=== PATIENT | female | born 1985 | race Caucasian/White ===

== ENCOUNTER 2023-08-06 08:58 | Outpatient (OUT) | payer OTHER, SELFPAY ==
--- NOTE | 2023-08-06 09:29 | XR_ITS ---
[address] [address] Patient Name: WANG ACEVEDO MRN: [id number] date: 1985 Sex: F Assigned Patient Location: [facility] Current Patient Location: [facility] Accession/Order Number: [id number] Exam Date: 08/06/2023 09:35 Report Date: 08/06/2023 10:11 At the request of: DELMER YODER Procedure: XR chest 2V EXAM: XR chest 2V HISTORY: Preop exam COMPARISON: None. TECHNIQUE: PA and lateral views of the chest. FINDINGS: The cardiomediastinal silhouette is normal. No focal consolidation is identified. There is no pneumothorax. No pleural effusion is noted. The osseous structures are intact. XR/XR chest 2V IMPRESSION: No acute cardiopulmonary process. Electronically authenticated by: YUKI CONCEPCION Date: 08/06/2023 10:11
--- NOTE | 2023-08-06 09:29 | ECG_ITS ---
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
[2023-08-06 09:53] LABS: Basophils Percent Auto 0.5 % (0.2-2.0); Eosinophils Absolute Auto 0.1 10^3/uL (0.0-0.7); Eosinophils Percent Auto 1.8 % (0.9-7.0); Hematocrit 39.7 % (36.0-48.0); Immature Granulocytes Abs Auto 0.02 10^3/uL (0.00-0.03); Immature Granulocytes Pct Auto 0.3 % (0.0-0.5); Lymphocytes Absolute Auto 2.9 10^3/uL (1.2-3.8); Lymphocytes Percent Auto 36.8 % (20.5-60.0); Mean Corpuscular HGB Conc 32.7 g/dL (29.9-35.2); Mean Corpuscular Hemoglobin 30.2 pg (26.7-34.0); Mean Corpuscular Volume 92.3 fL (81.0-99.0); Mean Platelet Volume 8.9 fL (9.5-13.5); Monocytes Absolute Auto 0.5 10^3/uL (0.3-0.8); Monocytes Percent Auto 6.5 % (1.7-12.0); Neutrophils Absolute Auto 4.3 10^3/uL (1.4-6.5); Neutrophils Percent Auto 54.1 % (43.0-75.0); Platelet Count 347 10^3/uL (150-450); Red Cell Distribution Width 11.9 % (11.0-15.0); White Blood Count 7.9 10^3/uL (4.0-11.0)
[2023-08-06 11:34] LABS: Partial Thromboplastin Time 24.1 sec (22.3-36.2); Prothrombin Time 9.8 sec (9.0-11.6)
[2023-08-06 11:50] LABS: INR <0.93
== END 2023-08-06 08:59 | disposition home or self-care (01) ==
LOC: PST 08:59
PROVIDERS: Visit Provider Otolaryngology
DX: Z01.810 Encounter for preprocedural cardiovascular examination (principal); Z01.812 Encounter for preprocedural laboratory examination; J32.0 Chronic maxillary sinusitis
CPT/HCPCS: 71046; 85025; 85610; 85730; 93005

== ENCOUNTER 2023-08-18 08:17 | Day surgery (SDC) | payer OTHER, SELFPAY ==
[2023-08-06 09:06] VITALS: BP 103/65; PULSE 83; RESP 16; TEMP 36.3; O2SAT 96; BMI 19.9
[2023-08-18] VITALS (12 sets, daily range): BP systolic 91–110; BP diastolic 57–78; PULSE 85–101; RESP 6–24; TEMP 36.2–36.8; O2SAT 96–100; BMI 19.9
--- NOTE | 2023-08-18 | OP_ITS ---
OPERATION DATE: 08/18/2023 PRIMARY CARE PHYSICIAN: Tiffanie Sweeney M.D. SURGEON: Roro Jewell M.D. PREOPERATIVE DIAGNOSIS: Chronic left maxillary sinusitis. POSTOPERATIVE DIAGNOSIS: Chronic left maxillary sinusitis. PROCEDURE: Left maxillary antrostomy. ANESTHESIA: General endotracheal. COMPLICATIONS: None. FINDINGS: Slightly milky fluid filling the left maxillary sinus. INDICATION: This 38-year-old woman presented with chronic left maxillary sinusitis, unresponsive to aggressive medical management. PROCEDURE: Patient identified in the holding area and taken back to the OR where she was placed in the supine position. After induction of general endotracheal anesthesia, the table was turned, the head elevated, and the face draped in a sterile fashion. An Afrin soaked pledget was placed in the left nose, and after waiting adequate time for decongestion, the nose was copiously irrigated. The nose was then approached with the nasal endoscope and lidocaine 1% with 1:100,000 injected into the uncinate process. After waiting adequate time for hemostasis, the nose was re-approached with the nasal endoscope. The middle turbinate was medialized using a Morgan elevator, and a sickle knife was used to incise the uncinate process. The uncinate process was removed with the straight ethmoid forcep, and the natural ostium of the maxillary sinus was identified with the Shefali seeker. The natural ostium was then opened posteriorly with the straight cutting forcep and inferiorly with the side biting forcep. There was a clear to milky fluid filling the sinus. The sinus was then copiously irrigated with normal saline. There was no significant bleeding, and the patient was awakened and taken to the recovery room in good condition. MARIBEL
--- OUTSIDE RECORDS SUMMARY | 2023-08-18 08:20 | XMS_ITS | CCD ---
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 Name Role Phone SANDI RIOS Admitting Unavailable SANDI RIOS Attending Unavailable TIFFANIE SWEENEY Referring Unavailable TIFFANIE SWEENEY Primary Care Unavailable Patel BRYSON, Tiffanie Myers Primary Care Unavailab Juventino BRYSON, Jaron Chavis Attending Unavaila lorenzo VALDES, Messi Morrison Attending U christine Sweeney MD, Tiffanie Myers Consulting Unavailab anel Sweeney MD, Tiffanie Lucia Primary Care Unavailab anel VALDES, Messi Morrison Attending U christine Sweeney MD, Tiffanie Lucia Primary Care Unavailab anel VALDES, Messi Morrison Attending U christine Sweeney MD, Tiffanie Myers Primary Care Unavailab anel Sweeney MD, Tiffanie Lucia Primary Care Unavailab anel VALDES, Messi Morrison Attending U christine Sweeney MD, Tiffanie Myers Primary Care Unavailab Claudia BRYSON, Bita Forrest Attending Ignacia Sweeney MD, Tiffanie Myers Primary Care Unavailab anel Bell MD, Bita Forrest Attending Ignacia Sweeney MD, Tiffanie Myers Referring Unavailab anel Sweeney MD, Tiffanie Myers Primary Care Unavailab Tolbert, Messi Morrison Attending U RORO Abdi Attending Unavailable ARTURO FULTON Referring Unavailable TIFFANIE SWEENEY Primary Care Physician [phone] Roro Yoder Referring Unavailable Roro Yoder Attending Unavailable Roro Yoder Admitting Unavailable JUAN ALEX Attending Unavailable JUAN ALEX Attending Unavailable Allergies Allergy Classification Reported Allergen(s) Allergy Type Date of Onset Reaction(s) Facility (1 source) cefprozil; Translations: [CEFZIL] Drug Allergy 0 [facility] Repository (2 sources) Cephalosporins (Antibiotic); Translations: [CEPHALOSPORINS] Propensity to adverse reactions (disorder) 6 [facility] Repository (1 source) cephalothin; Translations: [cephalothin] Propensity to adverse reactions to drug (disorder) [facility] Repository (1 source) buPROPion; Translations: [BUPROPION] Drug Allergy 6 [facility] Repository (1 source) DULoxetine; Translations: [DULOXETINE] Drug Allergy 6 [facility] Repository (1 source) Gluten; Translations: [GLUTEN] Propensity to adverse reactions to drug (disorder) 6 [facility] Repository (1 source) Nortriptyline; Translations: [NORTRIPTYLINE] Drug Allergy 8 [facility] Repository (1 source) topiramate; Translations: [TOPIRAMATE] Drug Allergy 7 [facility] Repository Problems Active Problems Problem Classification Problem Date Documented Da te Episodic/Chronic Diabetes mellitus with complications (2 sources) Type 2 diabetes mellitus with hyperglycemia; Translations: [Type 2 diabetes mellitus with hyperglycemia] Onset: 01-13-2023 Chronic Thyroid disorders (6 sources) Other specified hypothyroidism; Translations: [Autoimmune thyroiditis] Onset: 01-13-2023 Chronic Past or Other Problems Problem Classification Problem Date Documented Da te Episodic/Chronic Malaise and fatigue (2 sources) Other fatigue; Translations: [Other fatigue] Onset: 04-23-2023 Episodic Results Test Name Value Interpretation Reference Range Facility Orders Onlyon 08-05-2023 Orders Only [id number] Margret Byrne 1985 F Date Provider Department Center 08/05/2023 [id number]-ERLINDA NOLAND [facility] No family history on file Normal [facility] Orders Onlyon 08-03-2023 Orders Only [id number] Margret Byrne 1985 F Date Provider Department Center 08/03/2023 JUAN FOX [facility] END[facility] No family history on file Normal [facility] Orders Onlyon 07-28-2023 Orders Only [id number] Margret Byrne 1985 F Date Provider Department Center 07/28/2023 Vito8-ERLINDA NOLAND [facility] ENDOCR [facility] No family history on file Normal [facility] CT Maxillofacial w/o Contras ton 07-23-2023 CT Maxillofacial w/o Contrast Exam Date/Time: 07/23/2023 09:59 EST Reason for Exam: J32.4 Report IMPRESSION: THERE IS CHRONIC LEFT MAXILLARY SINUSITIS. EXAM: CT Maxillofacial w/o Contrast DATE: 07/23/2023 9:51 AM CLINICAL HISTORY: J32.4. COMPARISON: None available. TECHNIQUE: Multiple images axial images were obtained without contrast administration. 3-D sagittal and coronal reconstructions were performed. All CT scans at this facility use dose modulation, iterative reconstruction, and/or weight based dosing when appropriate to reduce radiation dose to as low as reasonably achievable. SINUS CT FINDINGS: The visualized intracranial portions are within normal limits. The orbits demonstrate no intra or extraconal lesions, the globes are intact. There is no fracture or subluxation. There are no lytic or sclerotic bone lesions. The frontal sinuses are well aerated. The ethmoid sinuses are within normal limits. The sphenoid sinuses are unremarkable. The maxillary sinuses are well aerated. There is mucoperiosteal thickening of the floor of the left maxillary sinus. The ostiomeatal complexes are patent. The nasal cavities are within normal limits. There is mild deviation of the nasal septum towards the left. The visualized portions of the mastoid air cells and middle ear spaces are within normal limits. The soft tissues are within normal limits. Report Ordering Provider: Roro Yoder FINAL REPORT Dictated: 07/23/2023 2:39 pm Je Fisher MD, V. Signed (Electronic Signature): 07/23/2023 2:39 pm Signed by: Je Fisher MD, V. Transcribed by: CARMELO Technologist: VERONICA [facility] Consent for Treatmenton 06-26 Consent for Treatment [id number] [facility] Physician Orderon 07-07-2023 Physician Order [id number]#[id number] [facility] Physician Orderon 06-22-2023 Physician Order [id number]#[id number] [facility] 36on 04-23-2023 36 Nca Certified Concierge [facility] to track down the labs, left voicemail with patient's name and date of service also with office fax and phone number. [facility] 37on 04-23-2023 37 Please take your thy roid hormone medication (levothyroxine) first thing in the morning on empty stomach with plain water, from other medication by 1 to 2 hours (especially calcium, iron and multivitamin pills), and wait 30 min before eating. Refer to sleep hygiene brochure. Stay well hydrated and change positions slowly to avoid blood pressure drop/racing heartbeats [facility] Follow-Upon 04-23-2023 Follow-Up [id number] Margret Byrne 1985 F Date Provider Department [facility] No family history on file Level of Service:[id number] [place] OFFICE/OUTPATIENT ESTABLISHED LOW MDM 20-29 MIN () Reason for Visit and Comments: FOLLOW UP [Other] [facility] Telephoneon 04-23-2023 Telephone [id number] Margret Byrne 1985 F Date Provider Department Center [facility] No family history on file [facility] Follow-Upon 01-13-2023 Follow-Up [id number] Margret Byrne 1985 F Date Provider Department Center 01/13/2023 316JUAN CLEMONS [facility] No family history on file Level of Service:[id number] [place] OFFICE/OUTPATIENT ESTABLISHED HIGH MDM 40-54 MIN () Reason for Visit and Comments: Follow-up [[id number]] Normal [facility] Endocrinology Office/Clinic Noteon 12-02-2022 Endocrinology Office/Clinic Note [facility] Chief Complaint New patient endocrinology consult for prediabetes and hypothyroidism History of Present Illness Patient is a 37 Years year old Female with a past medical history of _ and type _ diabetes complicated by _ who presents today for DM management and hypothyroidism. Current DM regimen: Diabetes Type: _ Year of Diagnosis: _ Circumstances of diagnosis: _ DM treatment at diagnosis: _ Current DM treatment: _ Med intolerances/contraindica tions: _ Total daily insulin dose: _ DM Complications: _ History of DKA: _ _This patient is currently on continuous subcutaneous insulin infusion through a _ insulin pump purchased in _. The patient uses _ infusion set. The patient currently has the following insulin pump self care habits in he/she does: _ INSULIN PUMP SELF-CARE HABITS. However, patient does not: _ INSULIN PUMP SELF-CARE HABITS CURRENT PUMP SETTINGS: Basal: _ I/C: _ Insulin On Board: _ ISF: _ TDD: _ TDD Basal: _ IOB: _ Off pump plan: _ BG Monitoring: AM BG: Before Lunch: Before dinner: BG < 70: Hypoglycemia: Events since last visit: _ Timing and Triggers: _ Knows to correct lows: _ Glucagon kit: _ Lifestyle history: Dietary history: Breakfast: _ Lunch: _ Dinner: _ Snacks: _ Drinks: _ Physical activity: _ Barriers: _ Diabetes Health Maintenance - Lipids: last LDL _, on statin - BP at goal _ - Microalbumin last _, on ADRIANNA/ARB - Last eye exam: _ Also include foot exam Year of diagnosis: _ Symptoms at presentation: _ Previous treatment: _ Current treatment: _ Last dose change: _ Technique: _ Biotin use: _ Iron, calcium, multivitamin: _ Current symptoms include _ . Denies tremors, palpitations, anxiety, insomnia, unintentional weight change, temperature imbalance, constipation, swelling, or fatigue. Pt does not have celiac disease, type 1 diabetes, adrenal insufficiency, b12 deficiency, or hypoparathyroidism. There is no _ family history of thyroid disease. _ if female plans for Physical Exam Exam: General: Alert and oriented, well nourished, no acute distress Eye: EOMI, normal conjunctiva without injection. No exophthalmos noted. HENT: Normocephalic, atraumatic. Neck: Supple, non-tender, no lymphadenopathy. Thyroid gland is _ in size. No thyroid bruit is identified. Lungs: Clear to auscultation, no wheezes. Non-labored respiration. Heart: Normal rate, regular rhythm, no murmur. Abdomen: Soft, non-tender, non-distended, normal bowel sounds. Musculoskeletal: Normal range of motion. _ pretibial edema. _ Skin: Skin is warm, dry and pink, no rashes noted on uncovered areas of skin examined with the patient still clothed. Neurologic: Awake, alert, and oriented X3. Biceps reflexes _ + bilaterally. _ tremor to outstretched hands. Psychiatric: Cooperative, appropriate mood and affect. Data Reviewed Weight Trend Weight Measured: 75.5 kg (05/27/22 08:11:00) Weight Measured: 73.2 kg (04/21/22 16:36:00) Labs: Hgb A1C Last 3 Results No qualifying data available. POC Hgb A1C Last 3 Results No qualifying data available. CMP Last Result No qualifying data available. Lipid Panel Last Result No qualifying data available. Urine Protein/Creatinine Ratio Last Result No qualifying data available. Vitamin B12 Last 3 Results No qualifying data available. Any historic paired glucose/c-pep _ Glucose Fasting Last 3 Results No qualifying data available. Glucose Random Last 3 Results No qualifying data available. C-Peptide [place] Last 3 Results No qualifying data available. Lab Insulin Level Last 3 Results No qualifying data available. Insulin Antibody-[place] Last 3 Results No qualifying data available. TSH Last Result No qualifying data available. Any historic t1d abs ? GAD65, ZNt8, IA-2, antipancreatic islet celiac ab _ Labs: TSH Last 3 Results No qualifying data available. Free T4 Last Result No qualifying data available. Total T3 Last Result No qualifying data available. Thyroperoxidase Antibody (TPO Ab) - Last Result No qualifying data available. Thyroglobulin Antibody (TG Ab) ? Last Result No qualifying data available. Assessment/Plan Patient is a 37 Years old Female who presents for DM management and hypothyroidism. Glycemic control Diabetes counseling, health care maintenance, and therapies were discussed. We have discussed the importance of the need for good blood pressure and glycemic control to further reduce the risks of microvascular and macrovascular complications. We have discussed how to recognize and treat hypoglycemia. I have stressed the importance of checking blood sugars prior to driving or operating machinery. Medication recommendations - _ Glucose monitoring: Glucose targets for non- adults: Fasting 80-130 mg/dL. Peak postprandial < 180 mg/dL. Prevention and treatment of hypoglycemia: I have discussed with (more content not included)... Normal [facility] Gastroenterology Office/Clin ic Noteon 05-27-2022 Gastroenterology Office/Clinic Note Chief Complaint Patient notes still having GI issues. F/u for GES, EGD/COLON. History of Present Illness Patient is a 36-year-old female who presents to GI clinic today for follow-up gastric emptying study and colonoscopy EGD. Gastric emptying study revealed normal gastric emptying. Colonoscopy revealed normal TI, normal colon. EGD revealed normal esophagus, gastric erythema, duodenal erythema. Pathology mild chronic gastritis, negative celiac, negative acute colitis. Patient does note having diarrhea. States this multiple times daily. Stool caliber 5-7 on the [place]. Notes feeling a lot of abdominal gurgling. Patient does note nausea and heartburn. Occasionally has to take a Nexium in the evening as well. Did discuss with patient doing 40 mg esomeprazole in a.m. and Gaviscon at at bedtime. We will also trial colestipol and Bentyl for diarrhea GES 05/02/2022 (05/02/2022 12:01 EST NM Gastric Emptying 4 Hour) IMPRESSION: 1. No abnormal gastric retention. 2. No GE reflux. Normal Limits for Gastric Retention [1] Colonoscopy 04/29/2022 Impression and Plan Notes: Impression: ?Normal examined terminal ileum ? Normal colon. Biopsied. Recommendations: ?Discharge patient to home ? Return to referring provider ? Await pathology results ? Repeat colonoscopy in 10 years for colorectal cancer screening purposes ?The patient has a contact number available for emergencies. The signs and symptoms of potential delayed complications were discussed with the patient. Return to normal activities tomorrow. Written discharge instructions were provided to the patient. [2] EGD 04/29/2022 Impression and Plan Notes: Impression: ?Normal esophagus ? Gastric erythema. Biopsied. ? Duodenal erythema. Biopsied. Recommendations: ?Await pathology results ? Outpatient GI follow-up ? Proceed with same-day colonoscopy ?The patient has a contact number available for emergencies. The signs and symptoms of potential delayed complications were discussed with the patient. Return to normal activities tomorrow. Written discharge instructions were provided to the patient.. [3] Pathology Diagnosis (Verified) Part A: Stomach, biopsies: Moderate chronic gastritis. Part B: Duodenum, biopsies: Benign small bowel. Negative for celiac disease. Part C: Colon, biopsies: Benign colonic mucosa. Negative for acute colitis. [4] OV 04/21/2022 Patient is a 36-year-old female who presents to GI clinic today as a referral for GERD and celiac disease. Patient notes having multiple colonoscopies EGDs. Believes last colonoscopy 2017. Notes had some GI testing at [facility] in 2019. States has been gluten-free for 9 years. Patient states having a lot of abdominal bloating. Did food sensitivity testing. Notes having chronic nausea. Endorses early satiety. Notes acid reflux and heartburn often. Takes Nexium 20 mg daily. Failed treatment with omeprazole. Notes having epigastric pain. Patient notes having bowel movements generally in AM. Does note going 3 to 4 days at times without bowel movements. Does note having abdominal spasms and cramping when having diarrhea. [5] Review of Systems Constitutional: No fevers, chills, sweats Eye: No recent visual problems ENMT: No ear pain, nasal congestion, sore throat Respiratory: No shortness of breath, cough Cardiovascular: No Chest pain, palpitations, syncope Gastrointestinal: As stated in HPI Genitourinary: No hematuria, no urgency/frequency Lymph: Negative for bruising tendency, swollen lymph glands Endocrine: Negative for excessive thirst, excessive hunger Musculoskeletal: No back pain, neck pain, joint pain, muscle pain, decreased range of motion Integumentary: No rash, pruritus, abrasions Neurologic: Alert & oriented X [address], place, time and situation Psychiatric: No anxiety, depression Physical Exam Vitals & Measurements HT: 170 cm WT: 75.5 kg BMI: 26.12 General: Alert and oriented, well nourished, no acute distress. Lungs: Clear to auscultation and percussion, non-labored respiration. Heart: Normal rate, regular rhythm, no murmur, gallop or edema. Abdomen: Soft, non-tender , non-distended, normal bowel sounds, no masses. Skin: Skin is warm, dry and pink, no rashes or lesions. Neurologic: Awake, alert, and oriented X3 Psychiatric: Cooperative, appropriate mood and affect. Additional Vitals No qualifying data available. Assessment/Plan 1. Gluten intolerance Continue to follow gluten-free diet 2. Nausea Zofran as needed Small frequent meals 3. Irritable bowel syndrome Twice dailyIncrease water and fiber in diet Fiber supplementation daily Colestipol Bentyl as needed Orders: colestipol, 2 tabs, Oral, BID, with a full glass of water, # 120 tabs, 2 Refill(s), Pharmacy: [id number] dicyclomine, 1 tabs, Oral, QID, PRN, # 60 tabs, 1 Refill(s), Pharmacy: [id number] esomeprazole, 1 caps, Oral, BID, # 60 caps, 2 Refill(s), Pharmacy: [id number] ondanset (more content not included)... Normal [facility] Gastroenterology Office/Clin ic Noteon 04-21-2022 Gastroenterology Office/Clinic Note Chief Complaint Patient having alot of GERD. Hx of celiac disesase. History of Present Illness Patient is a 36-year-old female who presents to GI clinic today as a referral for GERD and celiac disease. Patient notes having multiple colonoscopies EGDs. Believes last colonoscopy 2017. Notes had some GI testing at [facility] in 2019. States has been gluten-free for 9 years. Patient states having a lot of abdominal bloating. Did food sensitivity testing. Notes having chronic nausea. Endorses early satiety. Notes acid reflux and heartburn often. Takes Nexium 20 mg daily. Failed treatment with omeprazole. Notes having epigastric pain. Patient notes having bowel movements generally in AM. Does note going 3 to 4 days at times without bowel movements. Does note having abdominal spasms and cramping when having diarrhea. Review of Systems Constitutional: No fevers, chills, sweats Eye: No recent visual problems ENMT: No ear pain, nasal congestion, sore throat Respiratory: No shortness of breath, cough Cardiovascular: No Chest pain, palpitations, syncope Gastrointestinal: As stated in HPI Genitourinary: No hematuria, no urgency/frequency Lymph: Negative for bruising tendency, swollen lymph glands Endocrine: Negative for excessive thirst, excessive hunger Musculoskeletal: No back pain, neck pain, joint pain, muscle pain, decreased range of motion Integumentary: No rash, pruritus, abrasions Neurologic: Alert & oriented X [address], place, time and situation Psychiatric: No anxiety, depression Physical Exam Vitals & Measurements HR: 91 (Peripheral) SpO2: 99 HT: 170 cm WT: 73.2 kg BMI: 25.33 General: Alert and oriented, well nourished, no acute distress. Lungs: Clear to auscultation and percussion, non-labored respiration. Heart: Normal rate, regular rhythm, no murmur, gallop or edema. Abdomen: Soft, non-tender , non-distended, normal bowel sounds, no masses. Skin: Skin is warm, dry and pink, no rashes or lesions. Neurologic: Awake, alert, and oriented X3 Psychiatric: Cooperative, appropriate mood and affect. Additional Vitals No qualifying data available. Assessment/Plan 1. Gluten intolerance Continue gluten-free diet 2. Tubular adenoma of small intestine EGD colonoscopy 3. Lower abdominal pain EGD colonoscopy 4. Irritable bowel syndrome with alternating bowel habits Colonoscopy Increase water and fiber in diet Fiber supplementation daily 5. Nausea EGD Nexium twice daily Zofran as needed Gastric emptying study Medical Decision Making Chronic conditions NOT treated during this visit that affected my overall medical decision making: [] Treatment plans discussed but not opted for at this time: [] Prescribed medication that requires intensive monitoring for toxicity: [] I have reviewed the patient?s medication list for medication interactions/contraindica tions and/or for upcoming procedures: [yes or no] Time Spent with the Patient I have personally spent [33 minutes on this date, directly related to today's patient visit, including pre and post visit work, for this date of service. Time listed does not include time spent on separately billable services. Problem List/Past Medical History Ongoing Celiac disease Fibromyalgia Nimisha thyroiditis Insulin resistance PCOS - Polycystic ovary syndrome Historical No qualifying data Procedure/Surgical History Colonoscopy EGD Extraction of wisdom tooth REMOVAL OF ADENOIDS Tonsillectomy APPENDECTOMY (07/30/2015) Cholecystostomy (02/22/2018) Colonoscopy Esophagogastrodenoscopy with Biopsy/Snare (04/29/2022) Medications levothyroxine 150 mcg (0.15 mg) oral tablet, 150 mcg= 1 tabs, Oral, Daily magnesium amino acids chelate, Oral, Daily metFORMIN 1000 mg oral tablet, 1000 mg= 1 tabs, Oral, BID NexIUM 20 mg oral delayed release capsule, 20 mg= 1 caps, Oral, Daily Multivitamins with Vitamin B Complex, Vitamin C, Minerals and L-Methylfolate oral capsule, 1 caps, Oral, Daily Probiotic Formula oral capsule, 1 caps, Oral, Daily venlafaxine 75 mg oral capsule, extended release, 75 mg= 1 caps, Oral, Daily Vitamin D3, 10 mcg, Oral, Daily Allergies cephalothin (Hives) Social History Alcohol Current, Beer, 1-2 times per month Substance Abuse Denies All Tobacco Never (less than 100 in lifetime) Use:. Family History Cancer of colon: Cousin. Immunizations Vaccine Date Status Hib(HbOC) 04/15/2022 Given Comments : Original Free text Vaccine : Haemophilus influenzae type b vaccine, HbOC SARS-CoV-2 (COVID-19) mRNA BNT-162b2 vax 05/24/2019 Given Comments : Original Free text Vaccine : SARS-CoV-2 (COVID-19) mRNA BNT-162b2 vaccine / Pfizer Electronically signed by Messi Graham 05/04/22 18:51 EST Normal [facility] 17 HYDROXYPROGESTERONE [id number] on 05-23-2021 17 HYDROXYPROGESTERONE 167.62 ng/dL Normal <=206.00 [facility] Comment on above: Result Comment: INTE RPRETIVE INFORMATION for 17-Hydroxyprogesterone in females: Follicular 15 to 70 ng/dL Luteal 35 to 290 ng/dL REFERENCE INTERVAL: 17-Hydroxyprogesterone Qnt, HPLC-MS/MS Access complete set of age- and/or gender-specific reference intervals for this test in the [facility] Test Directory ([employer]). This test was developed and its performance characteristics determined by [facility] It has not been cleared or approved by the [place] Food and Drug Administration. This test was performed in a CLIA certified laboratory and is intended for clinical purposes. Performed By: [facility] [address] [place] [address] Clock Maker: Rosa Maria Chen MD ANDROSTENEDIONE [id number] ANDROSTENEDIONE 1.721 ng/mL Normal 0.260-2.140 [facility] Comment on above: Result Comment: INTE RPRETIVE INFORMATION: Androstenedione, Females 18 years and older Post-menopausal: 0.13-0.82 ng/mL REFERENCE INTERVAL: Androstenedione by TMS Access complete set of age- and/or gender-specific reference intervals for this test in the [facility] Test Directory ([employer]). This test was developed and its performance characteristics determined by [facility] It has not been cleared or approved by the [place] Food and Drug Administration. This test was performed in a CLIA certified laboratory and is intended for clinical purposes. Performed By: [facility] [address] [place] [address] Clock Maker: Rosa Maria Chen MD PROLACTINon 05-23-2021 PROLACTIN 18.30 ng/mL Normal 1.39-24.20 The [facility] Comment on above: Performed By: #### 4 1467 #### [facility] [address] [place] [address], [facility] SJOGRENS ANTIBODIESon 2020 SS-A Negative Normal NEG,NEGATIVE, Neg [facility] Comment on above: Performed By: #### 9 9850 #### [facility] [address] [place] [address], [facility] SS-B Negative Normal NEG,NEGATIVE, Neg [facility] Comment on above: Performed By: #### 9 9850 #### [facility] [address] [place] [address], [facility] TESTOSTERONE, FREE+SHBG+TOTA L ILon 05-23-2021 [place] Normal [facility] Comment on above: Result Comment: Test Performed by [facility] [address] [place] [address] - Released 05/23/2021 15:52 SEX HORM BIND GLOB 74 nmol/L Normal 30-135 [facility] Testosterone [Mass/Vol] 26 ng/dL Normal 20-70 [facility] TESTOSTERONE, FREE 2.7 pg/mL Normal 1.3-9.2 [facility] Comment on above: Result Comment: The concentration of free testosterone is derived from a mathematical expression based on the constant for the binding of testosterone to albumin and/or sex hormone binding globulin. Progress Noteson 05-06-2021 Progress Notes Encounter Department : [facility] You are not granted access to view this sensitive note. Normal [facility] Progress Noteson 04-03-2021 Progress Notes Encounter Department : [facility] You are not granted access to view this sensitive note. Normal [facility] HEPATITIS B CORE ANTIBODYon 03-15-2021 HEP B CORE AB Non-Reactive Normal NONREACTIVE [facility] Comment on above: Performed By: #### 4 1467 #### [facility] [address] HEPATITIS B SURFACE ANTIBODY QUANTon 03-15-2021 HEP B SURF AB 3.27 mIU/ml Normal [facility] Comment on above: Result Comment: INTE RPRETATION: NONREACTIVE<8.00 mIU/mL INDETERMINATE8.00 - 12.00 mIU/mL REACTIVE>12 mIU/mL Performed By: #### 4 1467 #### [facility] [address] [facility]. [address] HEPATITIS B SURFACE ANTIGEN QUALon 03-15-2021 HEP B SURF AG QUAL Non-Reactive Normal NONREACTIVE [facility] Comment on above: Performed By: #### 4 1467 #### [facility] [address] [facility] [place] [address], [facility] HEPATITIS C ANTIBODYon 03-15 ANTI-HCV Non-Reactive Normal NONREACTIVE [facility] Comment on above: Performed By: #### 4 1467 #### [facility] [address] [facility] [place] [address], [place] Progress Noteson 03-06-2021 Progress Notes Encounter Department : [facility] You are not granted access to view this sensitive note. Normal [facility] Progress Noteson 01-23-2021 Progress Notes Encounter Department : [facility] You are not granted access to view this sensitive note. Normal [facility] Progress Noteson 10-31-2020 Progress Notes Encounter Department : [facility] You are not granted access to view this sensitive note. Normal [facility] TSH3on 08-23-2020 TSH 3RD GENERATION 0.39 uIU/mL Normal 0.34-5.60 [facility] Comment on above: Performed By: #### 4 1467 #### [facility] [address] [place] [address], [facility] BASIC METABOLIC PANELon 05-26 Calcium [Mass/Vol] 9.6 mg/dL Normal 8.6-10.3 [facility] Comment on above: Performed By: #### 3 0728, 75164, 75596, 39644, 63685, 73700, 38294 #### [facility] [address] [place] [address], [facility] Chloride [Moles/Vol] 100 mmol/L Normal 98-107 [facility] Comment on above: Performed By: #### 3 0728, 10693, 60407, 12011, 53402, 05343, 98499 #### [facility] [address] [place] [address], [place] CO2 [Moles/Vol] 26 mmol/L Normal 21-31 [facility] Comment on above: Performed By: #### 3 0728, 67162, 85881, 94646, 11805, 89231, 25104 #### [facility] [address] [place] [address], [place] Creatinine [Mass/Vol] 0.68 mg/dL Normal 0.60-1.20 [facility] Comment on above: Performed By: #### 3 0728, 75051, 53558, 94274, 43826, 19973, 20292 #### [facility] [address] [place] [address], [place] GFR/1.73 sq M.predicted among blacks MDRD (S/P/Bld) [Vol rate/Area] mL/min/{1.73_m2} Normal >60 [facility] Comment on above: Performed By: #### 3 0728, 01764, 48559, 23847, 06611, 13142, 11840 #### [facility] [address] [place] [address], [place] GFR/1.73 sq M.predicted among non-blacks MDRD (S/P/Bld) [Vol rate/Area] mL/min/{1.73_m2} Normal >60 [facility] Comment on above: Performed By: #### 3 0728, 51048, 11752, 12607, 37859, 85803, 89083 #### [facility] [address] [place] [address], [place] Glucose [Mass/Vol] 90 mg/dL Normal 70-100 [facility] Comment on above: Performed By: #### 3 0728, 01158, 19526, 77597, 97412, 32842, 54066 #### [facility] [address] [place] [address], [place] Potassium [Moles/Vol] 4.5 mmol/L Normal 3.5-5.1 [facility] Comment on above: Performed By: #### 3 0728, 36715, 16975, 70105, 62793, 40087, 17649 #### [facility] [address] [place] [address], [place] Sodium [Moles/Vol] 134 mmol/L Low 136-145 [facility] Comment on above: Performed By: #### 3 0728, 01726, 29482, 80587, 42953, 76584, 28605 #### [facility] [address] Urea nitrogen [Mass/Vol] 9 mg/dL Normal 7-25 [facility] Comment on above: Performed By: #### 3 0728, 90769, 58937, 86669, 34071, 45485, 74552 #### [facility] [address] CBC W/DIFFon 06-20-2020 ABS IMM GRANS 0.0 10*3/uL Normal 0.0-0.2 [facility] Comment on above: Performed By: #### 0 0121, 00234, 20116 #### [facility] [address] ABS NEUTROPHILS 4.1 10*3/uL Normal 1.6-7.6 [facility] Comment on above: Performed By: #### 0 0121, 59912, 67515 #### [facility] [address] Basophils (Bld) [#/Vol] 0.0 10*3/uL Normal 0.0-0.2 [facility] Comment on above: Performed By: #### 0 0121, 98715, 52036 #### [facility] [address] Basophils/100 WBC (Bld) 0.4 % Normal 0.0-1.0 [facility] Comment on above: Performed By: #### 0 0121, 37953, 05646 #### [facility] [address] Eosinophils (Bld) [#/Vol] 0.0 10*3/uL Normal 0.0-0.5 [facility] Comment on above: Performed By: #### 0 0121, 90706, 72796 #### [facility] [address] [place] [address], [facility] Eosinophils/100 WBC (Bld) 0.0 % Normal 0.0-6.0 [facility] Comment on above: Performed By: #### 0 0121, 75599, 00718 #### [facility] [address] [place] [address], [facility] Erythrocyte distribution width (RBC) [Ratio] 11.8 % Normal 11.5-15.0 [facility] Comment on above: Performed By: #### 0 0121, 68651, 21253 #### [facility] [address] [facility] [place] [address], [facility] Hematocrit (Bld) [Volume fraction] 40.8 % Normal 36.0-45.0 [facility] Comment on above: Performed By: #### 0 0121, 22422, 38252 #### [facility] [address] [facility] [place] [address], [facility] Hemoglobin (Bld) [Mass/Vol] 13.4 g/dL Normal 12.0-15.0 [facility] Comment on above: Performed By: #### 0 0121, 92320, 21841 #### [facility] [address] [place] [address], [facility] IMMATURE GRANS 0.4 % Normal 0.0-1.0 [facility] Comment on above: Performed By: #### 0 0121, 95593, 17641 #### [facility] [address] [facility] [address], [facility] Lymphocytes (Bld) [#/Vol] 2.7 10*3/uL Normal 1.2-4.0 [facility] Comment on above: Performed By: #### 0 0121, 17794, 47843 #### [facility] [address] [place] [id number], [facility] Lymphocytes/100 WBC (Bld) 36.9 % Normal 20.0-45.0 [facility] Comment on above: Performed By: #### 0 0121, 78433, 83134 #### [facility] [address] MCH (RBC) [Entitic mass] 30.0 pg Normal 27.0-33.0 [facility] Comment on above: Performed By: #### 0 0121, 93765, 20050 #### [facility] [address] MCHC (RBC) [Mass/Vol] 32.8 g/dL Normal 32.0-35.0 [facility] Comment on above: Performed By: #### 0 0121, 06651, 99841 #### [facility] [address] MCV (RBC) [Entitic vol] 91.3 fL Normal 82.0-98.0 [facility] Comment on above: Performed By: #### 0 0121, 51443, 36314 #### [facility] [address] Monocytes (Bld) [#/Vol] 0.5 10*3/uL Normal 0.1-1.0 [facility] Comment on above: Performed By: #### 0 0121, 50897, 70071 #### [facility] [address] MONOS 7.1 % Normal 5.0-12.0 [facility] Comment on above: Performed By: #### 0 0121, 45328, 99025 #### [facility] [address] Neutrophils/100 WBC (Bld) 55.2 % Normal 40.0-72.0 [facility] Comment on above: Performed By: #### 0 0121, 84894, 35836 #### [facility] [address] [facility] [address], [facility] Nucleated RBC/100 WBC (Bld) [Ratio] 0 % Normal 0-0 [facility] Comment on above: Performed By: #### 0 0121, 42418, 13341 #### [facility] [address] [facility] [place] [address], [facility] PLAT CNT 305 10*3/uL Normal 150-400 [facility] Comment on above: Performed By: #### 0 0121, 93839, 26848 #### [facility] [address] [facility] [place] [address], [facility] RBC (Bld) [#/Vol] 4.47 10*6/uL Normal 3.80-5.00 [facility] Comment on above: Performed By: #### 0 0121, 70071, 70837 #### [facility] [address] [facility] [place] [address], [facility] WBC (Bld) [#/Vol] 7.37 10*3/uL Normal 4.00-10.60 [facility] Comment on above: Performed By: #### 0 0121, 99189, 76070 #### [facility] [address] [place] [address], [facility] FOLATE SERUMon 06-20-2020 SERUM FOLATE 9.49 ng/mL Normal 6.60-1000.00 [facility] Comment on above: Result Comment: Norm al range reflects World Health Organization International Standard Performed By: #### 4 1467 #### [facility] [address] [facility] [place] [address], [facility] FREE T4on 06-20-2020 Free T4 [Mass/Vol] 1.40 ng/dL Normal 0.71-1.85 [facility] Comment on above: Performed By: #### 4 1467 #### [facility] [address] [facility] [place] [address], [facility] HEMOGLOBIN A1Con 01-27-2021 Glucose [Moles/Vol] 108 mmol/L Normal [facility] Comment on above: Performed By: #### 4 1467 #### [facility] [address] [place] [address], [facility] HbA1c (Bld) [Mass fraction] 5.4 % Normal 4.0-6.0 [facility] Comment on above: Performed By: #### 4 1467 #### [facility] [address] [place] [address], [facility] LIPID PROFILEon 06-20-2020 Cholesterol [Mass/Vol] 193 mg/dL Normal 120-200 [facility] Comment on above: Result Comment: CHOL ESTEROL REFERENCE RANGE: 20 YEARS AND OLDER CARDIOVASCULAR RISK Less than 200 mg/dl Low Risk 200 to 239 mg/dl Borderline Risk 240 mg/dl and greater High Risk Performed By: #### 3 0728, 39271, 42362, 15140, 41604, 75358, 57954 #### [facility] [address] [place] [address], [facility] Cholesterol in HDL [Mass/Vol] 56 mg/dL Normal 23-92 [facility] Comment on above: Result Comment: Slig ht variation in normal range could be due to gender and/or age. HDL CHOLESTEROL REFERENCE RANGE: 20 years and older Cardiovascular Risk > or =60 mg/dL Desirable 40 TO 59 mg/dL Low Risk <40 mg/dL High Risk Performed By: #### 3 0728, 57967, 78732, 07520, 72405, 48647, 12965 #### [facility] [address] [place] [address], [facility] Cholesterol in LDL [Mass/Vol] 108 mg/dL Normal 0-130 [facility] Comment on above: Result Comment: LDL IS A CALCULATION LDL IS ONLY VALID IF THE TRIG IS LESS THAN 400. Performed By: #### 3 0728, 03629, 31793, 13337, 51056, 94899, 94017 #### [facility] [address] Cholesterol.total/Cho lesterol in HDL [Mass ratio] 3.4 {ratio} Normal 0.0-4.5 [facility] Comment on above: Performed By: #### 3 0728, 61282, 32655, 25263, 30422, 76398, 61307 #### [facility] [address] NON-HDL CHOLESTEROL 137 mg/dL Normal [facility] Comment on above: Performed By: #### 3 0728, 85607, 02553, 35743, 08262, 22781, 28785 #### [facility] [address] [facility] [address] Triglyceride [Mass/Vol] 145 mg/dL Normal 40-149 [facility] Comment on above: Result Comment: TRIG LYCERIDE REFERENCE RANGE: 20 YEARS AND OLDER CARDIOVASCULAR RISK LESS THAN 150 mg/dl LOW RISK 150 TO 199 mg/dl BORDERLINE RISK 200 mg/dl AND GREATER HIGH RISK Performed By: #### 3 0728, 88466, 76486, 45354, 23298, 82997, 86416 #### [facility] [address] [facility] [address] VLDL CHOL 29 mg/dL Normal 0-40 [facility] Comment on above: Performed By: #### 3 0728, 99021, 83464, 22912, 22662, 95417, 57228 #### [facility] [address] TSH3 WITH REFLEX FT4on 06-20 TSH 3RD GENERATION 0.09 uIU/mL Low 0.34-5.60 [facility] Comment on above: Performed By: #### 3 0728, 06836, 52944, 18783, 14509, 11096, 86383 #### [facility] [address] [place] [address], [facility] US LIVERon 06-20-2020 LIVER [facility] Department of Radiology [address] [place] [address] Patient Name: MARY GRACE HEMPHILL : 1985 Sex: F Age: Race: White Pt. Location: 260 Patient Status: O Ordered Date: 06/06/2020 3:15:00 PM Completed Date: 06/20/2020 08:57 AM Requesting Provider: SANDI RIOS Attending Provider: SANDI RIOS Report Copy To: TIFFANIE SWEENEY Signs & Symptoms: R10.11 Right upper quadrant pain I10 History: Zonia NPC Req. 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 FINDINGS: Midline structures: Normal Liver Size: Normal Echogenicity: Normal Echotexture:Normal Contour: Normal Portal venous flow:Hepatopedal Mass: None Bile ducts: Unremarkable. Common bile duct measures 6 mm Gallbladder: Surgically absent IMPRESSION: No evidence duct dilatation Electronically signed: Cheyenne Loo. Transcribed by: [email or web address], User Resident: Electronically Signed by: CHEYENNE LOO @ 06/20/2020 03:04 PM Normal [facility] Comment on above: Order Comment: Liver Battery conflicts with Comprehensive Metabolic Panel. Liver Battery canceled and Direct Bilirubin added. VITAMIN B12on 06-20-2020 Cobalamin (Vitamin B12) [Mass/Vol] 427 pg/mL Normal 180-914 [facility] Comment on above: Result Comment: REFE RENCE RANGES: 180-914 pg/mL Normal 145-179 pg/mL Indeterminate <145 pg/mL Deficient Performed By: #### 3 0728, 20874, 18905, 42865, 11219, 89915, 58374 #### [facility] [address] VITAMIN D 25-HYDROXYon 06-20 VITAMIN D 25-OH 30.7 ng/mL Normal 30.0-80.0 [facility] Comment on above: Result Comment: >80. 0 Toxicity possible Performed By: #### 3 0728, 68250, 81240, 96186, 95884, 77142, 20931 #### [facility] [address] DEXA AXIALon 06-18-2020 DEXA AXIAL [facility] Department of Radiology [address] [place] [id number] Patient Name: MARY GRACE HEMPHILL : 1985 Sex: F Age: Race: White Pt. Location: [facility] Patient Status: O Ordered Date: 06/15/2020 10:05:00 AM Completed Date: 06/18/2020 02:35 PM Requesting Provider: TIFFANIE SWEENEY Attending Provider: TIFFANIE SWEENEY Report Copy To: Signs & Symptoms: Celiac Disease K90.0 History: script scanned in [facility] Comments: Exam: DEXA AXIAL DEXA AXIAL 06/18/2020 2:35 PM CLINICAL INDICATIONS: Screening for osteoporosis. Z13.820 history of significant steroid use. COMPARISON: None Findings: In the lumbar spine measuring from L1 to L2 density is 1.253 g/square cm, equivalent to +0.7 standard deviations from mean normal for a young adult, and +0.3 standard deviations from mean normal for age, sex, and race matched controls. In the right femoral neck density is measured at 1.010 g /square cm, equivalent to -0.2 standard deviations from mean normal for a young adult, and -0.2 standard deviations from mean normal for age, sex, and race matched controls. IMPRESSION: Bone density measurements in the normal range in the lumbar spine and hips. [employer] (WHO) GUIDELINES: T-score of -1 or greater = Normal T-score less than -1.0 but greater than -2.5 = Osteopenia T-score of -2.5 or less = Osteoporosis In patients, who are osteopenic or osteoporotic, hormonal therapy, other medical therapy, dietary supplementation, and weight bearing exercise may prevent further bone mineral loss. Repeat DEXA testing may be indicated but is based on individual patient clinical characteristics. Electronically signed: Raul Teixeira. Transcribed by: [email or web address], User Resident: Electronically Signed by: RAUL TEIXEIRA @ 06/18/2020 04:06 PM Normal [facility] CBC W/DIFFon 06-06-2020 ABS IMM GRANS 0.0 10*3/uL Normal 0.0-0.2 [facility] Comment on above: Performed By: #### 0 0121, 04161, 42235 #### [facility] [address] [place] [address], [facility] ABS NEUTROPHILS 5.1 10*3/uL Normal 1.6-7.6 [facility] Comment on above: Performed By: #### 0 0121, 88471, 44955 #### [facility] [address] [place] [address], [facility] Basophils (Bld) [#/Vol] 0.0 10*3/uL Normal 0.0-0.2 [facility] Comment on above: Performed By: #### 0 0121, 85453, 53737 #### [facility] [address] [facility] [place] [address], [facility] Basophils/100 WBC (Bld) 0.5 % Normal 0.0-1.0 [facility] Comment on above: Performed By: #### 0 0121, 09618, 28185 #### [facility] [address] [facility] [place] [address], [facility] Eosinophils (Bld) [#/Vol] 0.0 10*3/uL Normal 0.0-0.5 [facility] Comment on above: Performed By: #### 0 0121, 78815, 09961 #### [facility] [address] [facility] [place] [address], [facility] Eosinophils/100 WBC (Bld) 0.0 % Normal 0.0-6.0 [facility] Comment on above: Performed By: #### 0 0121, 90703, 25894 #### [facility] [address] [facility] [place] [address], [place] Erythrocyte distribution width (RBC) [Ratio] 11.7 % Normal 11.5-15.0 [facility] Comment on above: Performed By: #### 0 0121, 26060, 76549 #### [facility] [address] [facility] [place] [address], [place] Hematocrit (Bld) [Volume fraction] 40.6 % Normal 36.0-45.0 [facility] Comment on above: Performed By: #### 0 0121, 04478, 26874 #### [facility] [address] [facility] [address], [facility] Hemoglobin (Bld) [Mass/Vol] 13.1 g/dL Normal 12.0-15.0 [facility] Comment on above: Performed By: #### 0 0121, 93251, 30013 #### [facility] [address] [facility] [place] [address], [facility] IMMATURE GRANS 0.2 % Normal 0.0-1.0 [facility] Comment on above: Performed By: #### 0 0121, 05640, 41552 #### [facility] [address] Lymphocytes (Bld) [#/Vol] 2.9 10*3/uL Normal 1.2-4.0 [facility] Comment on above: Performed By: #### 0 0121, 03113, 90985 #### [facility] [address] Lymphocytes/100 WBC (Bld) 33.7 % Normal 20.0-45.0 [facility] Comment on above: Performed By: #### 0 0121, 71255, 25583 #### [facility] [address] [facility]. [address] MCH (RBC) [Entitic mass] 30.0 pg Normal 27.0-33.0 [facility] Comment on above: Performed By: #### 0 0121, 65079, 07836 #### [facility] [address] [facility] [place] [address], [facility] MCHC (RBC) [Mass/Vol] 32.3 g/dL Normal 32.0-35.0 [facility] Comment on above: Performed By: #### 0 0121, 25848, 49082 #### [facility] [address] MCV (RBC) [Entitic vol] 92.9 fL Normal 82.0-98.0 [facility] Comment on above: Performed By: #### 0 0121, 91090, 43046 #### [facility] [address] Monocytes (Bld) [#/Vol] 0.6 10*3/uL Normal 0.1-1.0 [facility] Comment on above: Performed By: #### 0 0121, 03955, 66008 #### [facility] [address] MONOS 6.9 % Normal 5.0-12.0 [facility] Comment on above: Performed By: #### 0 0121, 63075, 57268 #### [facility] [address] Neutrophils/100 WBC (Bld) 58.7 % Normal 40.0-72.0 [facility] Comment on above: Performed By: #### 0 0121, 31647, 73425 #### [facility] [address] Nucleated RBC/100 WBC (Bld) [Ratio] 0 % Normal 0-0 [facility] Comment on above: Performed By: #### 0 0121, 61418, 20161 #### [facility] [address] PLAT CNT 323 10*3/uL Normal 150-400 [facility] Comment on above: Performed By: #### 0 0121, 24846, 89939 #### [facility] [address] RBC (Bld) [#/Vol] 4.37 10*6/uL Normal 3.80-5.00 [facility] Comment on above: Performed By: #### 0 0121, 49019, 18205 #### [facility] [address] [place] [address], [facility] WBC (Bld) [#/Vol] 8.61 10*3/uL Normal 4.00-10.60 [facility] Comment on above: Performed By: #### 0 0121, 60323, 50111 #### [facility] [address] [place] [address], [facility] COMP METABOLIC PANELon 06-06 Albumin [Mass/Vol] 4.6 g/dL Normal 3.5-5.7 [facility] Comment on above: Performed By: #### 0 0121, 04827, 98625 #### [facility] [address] [place] [address], [facility] ALKALINE PHOSPH 47 IU/L Normal 34-104 [facility] Comment on above: Performed By: #### 0 0121, [id number], [id number] #### [facility] [address] [place] [place] [address], [facility] ALT [Catalytic activity/Vol] 8 U/L Normal 7-52 [facility] Comment on above: Performed By: #### 0 0121, [id number], [id number] #### [facility] [address] [place] [address], [facility] AST [Catalytic activity/Vol] 14 U/L Normal 13-39 [facility] Comment on above: Performed By: #### 0 0121, 54596, 77974 #### [facility] [address] [place] [address], [place] Bilirubin [Mass/Vol] 0.3 mg/dL Normal 0.3-1.0 [facility] Comment on above: Performed By: #### 0 0121, 49813, 72954 #### [facility] [address] [place] [address], [place] Calcium [Mass/Vol] 9.8 mg/dL Normal 8.6-10.3 [facility] Comment on above: Performed By: #### 0 0121, 90620, 56774 #### [facility] [address] [place] [address], [place] Chloride [Moles/Vol] 102 mmol/L Normal 98-107 [facility] Comment on above: Performed By: #### 0 0121, 20931, 83591 #### [facility] [address] [place] [address], [place] CO2 [Moles/Vol] 27 mmol/L Normal 21-31 [facility] Comment on above: Performed By: #### 0 0121, 19804, 93447 #### [facility] [address] [place] [address], [place] Creatinine [Mass/Vol] 0.61 mg/dL Normal 0.60-1.20 [facility] Comment on above: Performed By: #### 0 0121, 04896, 18839 #### [facility] [address] [place] [address], [place] GFR/1.73 sq M.predicted among blacks MDRD (S/P/Bld) [Vol rate/Area] mL/min/{1.73_m2} Normal >60 [facility] Comment on above: Performed By: #### 0 0121, 41127, 12463 #### [facility] [address] [place] [address], [place] GFR/1.73 sq M.predicted among non-blacks MDRD (S/P/Bld) [Vol rate/Area] mL/min/{1.73_m2} Normal >60 [facility] Comment on above: Performed By: #### 0 0121, 62627, 06820 #### [facility] [address] [place] [address], [place] Glucose [Mass/Vol] 90 mg/dL Normal 70-100 [facility] Comment on above: Performed By: #### 0 0121, 57679, 91385 #### [facility] [address] [place] [address], [facility] Potassium [Moles/Vol] 4.2 mmol/L Normal 3.5-5.1 [facility] Comment on above: Performed By: #### 0 0121, 11830, 63047 #### [facility] [address] [place] [address], [facility] Protein [Mass/Vol] 6.9 g/dL Normal 6.0-8.3 [facility] Comment on above: Performed By: #### 0 0121, 11408, 69306 #### [facility] [address] [place] [address], [facility] Sodium [Moles/Vol] 137 mmol/L Normal 136-145 [facility] Comment on above: Performed By: #### 0 0121, 46722, 58844 #### [facility] [address] [place] [address], [facility] Urea nitrogen [Mass/Vol] 6 mg/dL Low 7-25 [facility] Comment on above: Performed By: #### 0 0121, 82820, 53091 #### [facility] [address] [place] [address], [facility] DIRECT BILIon 06-06-2020 Bilirubin.direct [Mass/Vol] 0.1 mg/dL Normal 0.0-0.2 [facility] Comment on above: Order Comment: Liver Battery conflicts with Comprehensive Metabolic Panel. Liver Battery canceled and Direct Bilirubin added. Performed By: #### 0 0121, 62213, 87236 #### [facility] [address] [place] [id number], [facility] LIPASE BLOODon 06-06-2020 LIPASE 10 Units/L Low 11-82 [facility] Comment on above: Performed By: #### 0 0121, 97148, 82764 #### [facility] [address] [place], [address] PROTHROMBIN TIMEon 1 INR Coag (PPP) [Relative time] 0.90 {INR} Low 0.91-1.16 [facility] Comment on above: Result Comment: ACCC P RECOMMENDED INR FOR WARFARIN THERAPY -------- ------- CONDITION INR PROPHYLAXIS OF VENOUS THROMBOSIS 2-3 (HIGH-RISK SURGERY) TREATMENT OF VENOUS THROMBOSIS 2-3 TREATMENT OF PULMONARY EMBOLISM 2-3 PREVENTION OF SYSTEMIC EMBOLISM: 2-3 ACUTE MYOCARDIAL INFARCTION TISSUE HEART VALVES VALVULAR HEART DISEASE ATRIAL FIBRILLATION RECURRENT SYSTEMIC EMBOLISM MECHANICAL HEART VALVE 2.5-3.5 FROM: ORAL ANTICOAGULANTS. MECHANISM OF ACTION, CLINICAL EFFECTIVENESS, AND OPTIMAL THERAPEUTIC RANGE. CHEST 1995;108:231S-246S. Performed By: #### 4 1467 #### [facility] [address] [facility]. [address] PT Coag (PPP) [Time] 12.2 s Low 12.3-14.8 [facility] Comment on above: Result Comment: ALL RESULTS MUST BE INTERPRETED WITH RESPECT TO BLOOD DRAWING ARTIFACT OR DILUTION ERROR OF ANTICOAGULANT AT THE TIME OF SAMPLING. Performed By: #### 4 1467 #### [facility] [address] [facility]. [address] MRI SHOULDER RIGHT WITH CONT RASTon 07-21-2019 MRI SHOULDER RIGHT WITH CONTRAST EXAM: MRI SHOULDER RIGHT WITH CONTRAST CLINICAL STATEMENT: r/o labrum tear, full thickness rotator cuff tear, Acute pain of right shoulder, Rotator cuff strain, right, initial encounter, COMPARISON: 06/30/2019 FINDINGS: Degree of capsular distention is satisfactory. Glenoid labrum is intact. Biceps tendon and biceps anchor are intact. Rotator cuff tendon is intact. No Hill-Sachs deformity or bony Bankart lesion is seen. No marrow edema identified in the right shoulder. Small inferiorly directed osteophyte seen at the acromion tip. Glenohumeral joint space is preserved. Acromioclavicular joint space is preserved. No fluid identified in the subacromial subdeltoid bursa. IMPRESSION: Negative MRI arthrogram of the right shoulder. Dictated by Diaz Sibley M.D.Workstation ID:[id number] Injury a couple weeks ago while walking the dog rt arm was above head when dog pulled her down and she landed on rt shoulder. Rt shoulder pain. No surg No hx cancer Normal [facility] XR ARTHROGRAM SHOULDER RIGHT on 07-21-2019 XR ARTHROGRAM SHOULDER RIGHT EXAM: XR ARTHROGRAM SHOULDER RIGHT CLINICAL STATEMENT: Acute pain of right shoulder, Rotator cuff strain, right, initial encounter, COMPARISON: 06/30/2019 FLUOROSCOPIC TIME: 0.6 minutes FINDINGS: A fluoroscopic guided right shoulder arthrogram was planned. The risks, benefits, and alternatives to the procedure were explained to the patient. The patient was agreeable and informed consent was obtained. The patient was placed supine on the fluoroscopy table with the glenohumeral joint in external rotation. Under fluoroscopic guidance an area overlying the glenohumeral joint was targeted. The overlying skin was sterilely prepped and draped in the usual fashion. Local anesthesia was achieved with 1% Lidocaine solution. Under intermittent fluoroscopic guidance a spinal needle was inserted into the glenohumeral joint. Standard solution of 15 cc normal saline, 5 cc Omnipaque and 0.1 cc Omniscan was used. A total of 13 cc of this solution was then injected into the glenohumeral joint. The spinal needle was then removed. The patient tolerated the procedure well and experienced no immediate post-procedural complication. IMPRESSION: Technically successful fluoroscopic guided right shoulder injection. Dictated by Diaz Sibley M.D.Workstation ID:[id number] Rt shoulder pain s/p 2-5-20. Omnipaque 300: 5 ml. Saline: 12 ml. Lidocaine: 5 ml. Dotarem: 0.1 ml. 20g spinal needle. FT: 0.6 min. 4 images. Normal [facility] XR SHOULDER RIGHT STANDARD V IEWon 07-01-2019 TSH Qn 06/30/2019 2:55 PM RIGHT SHOULDER (3 VIEWS): INDICATION: Blunt trauma. Pain. Decreased range of motion. COMPARISON: None. FINDINGS: Bony structures are intact without fracture, dislocation or focal destructive lesion. Joint spaces are well-preserved. Radiopaque foreign body or soft tissue emphysema are also not evident. IMPRESSION: NORMAL EXAM. DICTATED BY: Guero Bergman M.D.. Workstation ID:[id number] Dog yanked patient's arm overhead and back last PM. Normal [facility] Encounters Encounter Date Encounter Type Care Provider Facility Start: 07-23-2023 End: 07-24-2023 ambulatory Roro Yoder Facility:[facility] Start: 07-23-2023 End: 07-23-2023 Patient encounter procedure Roro Yoder [facility] Start: 06-22-2023 End: 06-22-2023 ambulatory RORO YODER Not Available Start: 04-23-2023 End: [facility]: 01-13-2023 End: 01-13-2023 ambulatory [facility] Start: 12-03-2022 End: 12-04-2022 ambulatory Tiffanie Sweeney MD Facility: [facility] Start: 12-02-2022 ambulatory Tiffanie Sweeney MD F acility: [facility] Start: 08-25-2022 End: 08-26-2022 ambulatory Messi Orozco APRN-WATER CONSERVATION SPECIALIST [facility] Start: 05-27-2022 End: 05-28-2022 ambulatory Tiffanie [facility]weeney [facility] Start: 05-02-2022 End: 05-03-2022 ambulatory Messi Orozco APRN-W[employer] SPECIALIST Facility:[facility] Start: 04-29-2022 End: 04-29-2022 ambulatory Tiffanie Sweeney MD Facility:[facility] Start: 04-21-2022 End: 04-22-2022 ambulatory [facility] Start: 06-20-2020 End: 06-21-2020 ambulatory SANDI RIOS Facility:[facility] Payers Date Payer Category Payer Unknown [id number] 2021 Unknown 2018 Private Health Insurance [id number] 1985 Unknown [id number] 2.16.8 [id number] 1985 Unknown [id number] 2.16. [id number] 1985 Unknown [id number] 2.16. [id number] 1985 Unknown [id number] 2.16. [id number] 1985 Unknown [id number] 2.16. [id number] 1985 Unknown [id number] 2.16. [id number] 1985 Unknown [id number] 2.16. [id number] 1983 Unknown [id number] 2.16. [id number] 1985 Unknown [id number] 2.16. [id number] 1985 Unknown [id number] 2.16.84 [id number] 1985 Unknown [id number] 2.16.8 [id number] Self-pay Social History Date Type Detail Facility Tobacco smoking status No Smoking Status Entered [facility] Sex Assigned At Female [facility] Clinical Notes 08-02-2020 to 04-23-2023 Note Date & Type Note Facility 04-23-2023 Note Attestation signed by Juan Alex at 04/23/2023 12:48 PM By using the attestations below, the signing clinician agrees that I have read and verify that the documentation has been personally reviewed by me and ensure that the documentation accurately reflects the encounter. GC: I personally saw this patient on the day of the encounter, performed the chaudhry portion(s) of the service and participated in the management and confirm the resident's documentation. Please note there may be an additional personal documentation from me. Reason for Visit: Mary Grace Byrne is a 37 y.o. female who is being seen today for follow-up for Hypothyroidism, Pre Diabetes and Obesity. 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 Ortiz. Interval history: Last appointment December 2022. At that time, metformin was reduced from 2gm to 1gm daily, Ozempic was held for one month due to glucose fluctuations, and levothyroxine dosing modification was deferred pending TFTs. Notes tachycardia, heart-racing sensation when she misses or delays metformin doses. This will occur approximately three times a month, and is always driven by fatigue related to her heavy work/school schedule. She has taken levothyroxine on schedule, and takes the medication appropriately. Still notes occasional hypoglycemia (70's is the lowest she's seen), but the frequency of the lows has improved since the metformin dose adjustment. Patient reports she generally feels better when TSH levels are 2.5 or below. She otherwise notes significant increases in fatigue/weakness. Thyroid-related symptoms Constitutional Symptom Yes No Comment Irritability [] [x] Anxiety [] [x] Difficulty concentrating [x] [] Difficulty sleeping [x] [] Mood swings [] [x] Depression [] [x] Exhaustion [] [x] Forgetfulness [] [x] Decreased libido [] [x] Low energy fatigue [x] [] Heat intolerance [x] [] Excessive sweating [x] [] Cold intolerance [] [x] Weight loss [x] [] ~ 35 pounds in 1-1/2-year Weight gain [] [x] Increasing itchiness [] [x] Recent viral illness [] [x] Cardiovascular Symptom Yes No Comment Racing heartbeat [x] [] during high blood sugars or with hot shower or changing positions suddenly Palpitation [x] [] Slow heartbeat [] [x] Fluid retention [] [x] Trouble breathing [] [x] Neuromuscular Symptom Yes No Comment Proximal muscle weakness with upper extremities [] [x] Proximal muscle weakness with lower extremities [] [x] Muscle aches/cramps [] [x] Shakes/tremors [x] [] Joint pain [] [x] Decreased exercise capacity [] [x] Compressive symptoms in the neck Symptom Yes No Comment A new mass [] [x] Choking [] [x] Trouble swallowing [] [x] Change in voice [] [x] Fullness [] [x] Lower central neck pain [] [x] Gastrointestinal Symptom Yes No Comment Hyperactive bowel movement [] [x] Constipation [x] [] Integumentary Symptom Yes No Comment Dry skin [] [x] Yellowing skin [] [x] Brittle hair [x] [] Hair loss [] [x] Brittle nail [] [x] Eyes Symptom Yes No Comment Dryness [] [x] Discomfort/pain [] [x] Tearing [] [x] Protrusion [] [x] Blurry vision [] [x] Double vision [] [x] Decreased near vision [] [x] Thyroid hormone administration Yes No Comment Taken on empty stomach [x] [] from food by 30 min before eating [x] [] from heavy metals (ex. calcium or iron pills), and multivitamin by 2 hours [x] [] For thyroid nodule(s) Yes No Comment Personal history of radiation exposure under the age 20 years [] [] Family history of thyroid cancer [] [] If yes, what type? Family history of thyroid disease: [YES] every one on moms side REVIEW OF SYSTEMS If except mentioned above Physical Exam: There were no vitals filed for this visit. General: The patient is a pleasant female in no apparent distress. HEENT: PERRL, EOMI, [NO] lid lag, [NO] proptosis, [NO] periorbital edema. Neck: [NO] Thyroid enlargement, [NO] bruits, [NO] palpable cervical lymph nodes. Heart: Regular, tachycardia [NO] murmurs, [NO] rubs, [NO] gallops. Lungs: Clear to auscultation, [NO] use of accessory muscle Extremities: [YES] Tremor with outstretched arms, [NO] LE edema. Skin: Purpleish reticular rash noticed on left lower extremity Neuro: A & O x 3. Deep tendon reflexes are 2+ with normal relaxation phase. Psych: Mood and affect are appropriate. Spine exam: Intact Gait: Stable Labs: 04/14/2022 through patient's MyChart on her phone Tsh: 1.100 Free t4 1.37 Lab Results (more content not included)... [facility] 01-13-2023 Note Attestation signed by Juan Alex at 01/13/2023 10:54 AM (Updated) By using the attestations below, the signing clinician agrees that I have read and verify that the documentation has been personally reviewed by me and ensure that the documentation accurately reflects the encounter. GC: I personally saw this patient on the day of the encounter, performed the chaudhry portion(s) of the service and participated in the management and confirm the resident's documentation. Please note there may be an additional personal documentation from me. TOTAL TIME SPENT : 45 minutes She seemed upset about her current medical conditions and seeking medical attention to resolve these. After a long discussion, we both agreed to the plans as below weighing benefits and risks: Reduce metformin from 2,000 mg daily to 1,000 mg daily Hold off Ozempic for a month to see whether her glucose fluctuation may improve. Checking fasting plasma glucose concentration. If TSH is suppressed, reduce the dose of levothyroxine. She declined the copying machine mechanic referral at this point as she follows strict gluten-free diet well per her. Juan Alex MD Reason for Visit: Mary Grace Byrne is a 37 y.o. female who is being seen today for follow-up for Hypothyroidism, Pre Diabetes and Obesity. Last visit with Dr. 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 Ortiz Interval history: During last appointment June 2021 levothyroxine was decreased to 150 mcg from 175 mcg due to suppressed TSH. Patient was also started on Ozempic with concerns of family history of diabetes as well as possible PCOS and prediabetes. Patient started Ozempic and took it for a couple months and was off in the interim. She restarted back in September 2022. Back in June 2021 patient was 175 pounds now down to 140 pounds Over last 2 months since October she started noticing shaky along with elevated heartbeat and noticed her blood sugar being in the lower range. She started checking more frequently and noticed fasting blood glucose at 51 once as well as blood sugar of 66 mg/dL once after eating. She has noticed bluish discoloration of her right lower extremity and discussed with her primary care physician and is supposed to get evaluated by vascular surgery for possible Raynaud's Thyroid-related symptoms Constitutional [NO] Irritability [NO] Anxiety [YES] Difficulty concentrating [YES] Difficulty sleeping [NO] Mood swings [NO] Exhaustion [NO] Forgetfulness [Not Assessed] Decreased libido [YES] Low energy fatigue [YES] Heat intolerance [YES] Excessive sweating [NO] Cold intolerance [YES] Weight loss almost 35 pounds in 1-1/2-year [NO] Weight gain [NO] Increasing itchiness [NO] Recent viral illness Cardiovascular [YES] Racing heartbeat during high blood sugars [YES] Palpitation [NO] Slow heartbeat [NO] Fluid retention [NO] Trouble breathing Integumentary [NO] Dry skin [NO] Yellowing skin [YES] Brittle hair [NO] Hair loss [NO] Brittle nail Neuromuscular [NO] Proximal muscle weakness with upper extremities: [NO] Proximal muscle weakness with lower extremities: [NO] Muscle aches/cramps [YES] Shakes/tremors [NO] Joint pain [NO] Decreased exercise capacity Compressive symptoms in the neck [NO] A new mass [NO] Choking [NO] Trouble swallowing [NO] Change in voice [NO] Fullness [NO] Lower central neck pain Eyes [NO] Dryness: [NO] Discomfort/pain: [NO] Tearing: [NO] Protrusion: [NO] Blurry vision: [NO] Double vision [NO] Decreased near vision Gastrointestinal [NO] Hyperactive bowel movement: [YES] Constipation Thyroid hormone administration [YES] Taken on empty stomach [YES] from food by 30 min before eating [YES] from heavy metals (ex. calcium or iron pills), and multivitamin by 2 hours For thyroid nodule(s) [NO] Personal history of radiation exposure under the age 20 years [NO] Family history of thyroid cancer. If yes, what type? Family history of thyroid disease: [YES] every one on moms side REVIEW OF SYSTEMS If except mentioned above Physical Exam: There were no vitals filed for this visit. General: The patient is a pleasant female in no apparent distress. HEENT: PERRL, EOMI, [NO] lid lag, [NO] proptosis, [NO] periorbital edema. Neck: [NO] Thyroid enlargement, [NO] bruits, [NO] palpable cervical lymph nodes. Heart: Regular, tachycardia [NO] murmurs, [NO] rubs, [NO] gallops. Lungs: Clear to auscultation, [NO] use of accessory mu (more content not included)... [facility] 05-02-2022 Note Procedure: Nuclear m edicine gastric emptying study (solid meal). Radiopharmaceutical: 1 mCi of [id number] colloid in scrambled eggs. Administration to imaging time: Immediate and at 30 minute intervals to 240 minutes. Images: Anterior planar images of the abdomen. A time/activity curve was generated. Clinical information: 36-year-old female with early satiety. Chronic heartburn x6 months. Insulin resistant diabetic. No history of gastric surgeries. Comparison: None. Findings: Gastroesophageal (GE) reflux: None. Gastric retention: Minutes Percentage 30 121 % 60 31 % 90 9 % 120 3 % IMPRESSION: 1. No abnormal gastric retention. 2. No GE reflux. Normal Limits for Gastric Retention Lower Limit Upper Limit 30 min 70% 60 min 90% 60 min 30% 120 min 60% 180 min 30% 240 min 10% Final Dictated by: Gian Contreras MD Dictated DT/TM: 05/02/2022 3:05 pm Signed by: Gian Contreras MD Signed (Electronic Signature): 05/02/2022 3:06 pm (If Report Is Signed, Electronically Signed in Other Vendor System) [facility] 04-29-2022 Note Missing Attachment 3 [id number] Can be viewed in source system Missing Attachment [id number] Can be viewed in source system Missing Attachment [id number] Can be viewed in source system Missing Attachment [id number] Can be viewed in source system Missing Attachment [id number] Can be viewed in source system Missing Attachment [id number] Can be viewed in source system Missing Attachment [id number] Can be viewed in source system Missing Attachment [id number] Can be viewed in source system Missing Attachment [id number] Can be viewed in source system Patient: Mary Grace Hemphill Age: 36 years Sex: Female : 1985 Associated Diagnoses: None Author: Jaron Falcon MD Pre-Procedure Procedure Date: 04/29/2022 . Procedure Type: Colonoscopy. Procedure provider: Performed by Jaron Falcon MD. Referred by: Messi Graham. Current history and physical: Performed prior to procedure. Informed Consent: After discussing the rationale, risks and benefits, and alternatives to this procedure, the patient provided signed consent for the procedure. Indication: Diarrhea, Unexplained chronic abdominal pain. Monitoring: See anesthesia record. Procedure Location: [facility]. See anesthesia record for sedation given during procedure. After informed consent, the patient was positioned in the left lateral decubitus position. Digital rectal exam was performed and was normal. The pediatric colonoscope was advanced under direct visualization from the anus to the cecum, confirmed by the presence of the appendiceal orifice and ileocecal valve with ease. The terminal ileum was then intubated and the scope was advanced 10 cm. The scope was then withdrawn and mucosa was carefully examined. The patient's tolerance of the procedure was excellent. The quality the bowel preparation was fair. Extensive washing performed to improve. The examined terminal ileum was normal. The entire examined colon appeared normal. There was no evidence of polyps, diverticula, or other lesions. Biopsies were obtained with a cold biopsy forceps throughout the colon for histology. Retroflexion was performed in the rectum and was normal.. Images Procedure images: [id number] [id number].jpg COLON_0008.jpg COLON_0005.jpg COLON_0006.jpg COLON_0003.jpg COLON_0004.jpg COLON_0002.jpg COLON_0001.jpg . Post-Procedure Complications encountered during the procedure were none. Estimated blood loss during the procedure Minimal. Specimens were sent to pathology. Impression and Plan Notes: Impression: -Normal examined terminal ileum - Normal colon. Biopsied. Recommendations: -Discharge patient to home - Return to referring provider - Await pathology results - Repeat colonoscopy in 10 years for colorectal cancer screening purposes -The patient has a contact number available for emergencies. The signs and symptoms of potential delayed complications were discussed with the patient. Return to normal activities tomorrow. Written discharge instructions were provided to the patient. . Electronically signed by Jaron Falcon MD 04/29/22 09:41 [facility] Comment on above: Order Comment: Henrietta ng Attachment [id number] Can be viewed in source system Missing Attachment [id number] Can be viewed in source system Missing Attachment [id number] Can be viewed in source system Missing Attachment [id number] Can be viewed in source system Missing Attachment [id number] Can be viewed in source system Missing Attachment [id number] Can be viewed in source system Missing Attachment [id number] Can be viewed in source system Missing Attachment [id number] Can be viewed in source system Missing Attachment [id number] Can be viewed in source system 04-29-2022 Note Missing Attachment [id number] Can be viewed in source system Missing Attachment [id number] Can be viewed in source system Missing Attachment [id number] Can be viewed in source system Missing Attachment [id number] Can be viewed in source system Missing Attachment [id number] Can be viewed in source system Missing Attachment [id number] Can be viewed in source system Missing Attachment [id number] Can be viewed in source system Missing Attachment [id number] Can be viewed in source system Missing Attachment [id number] Can be viewed in source system Patient: Mary Grace Hemphill Age: 36 years Sex: Female : 1985 Associated Diagnoses: None Author: Jaron Falcon MD Pre-Procedure Procedure Date: 04/29/2022 . Procedure Type: Esophagogastroduodenoscopy. Procedure provider: Performed by Jaron Falcon MD. Referred by: Messi Graham. Current history and physical: Performed prior to procedure. Informed Consent: After discussing the rationale, risks and benefits, and alternatives to this procedure, the patient provided signed consent for the procedure. Indication: Celiac disease, Diagnostic: GERD, abdominal pain. Monitoring: See anesthesia record. Procedure Location: [facility]. See anesthesia record for sedation given during procedure. After informed consent, the patient was positioned in the left lateral decubitus position. A gastroscope was advanced in the mouth the second portion of the duodenum under direct visualization without difficulty. The patient's tolerance of the procedure was excellent. The scope was withdrawn mucosa was carefully examined. Retroflexion was performed the stomach and the cardia and fundus were examined. Esophagus was normal. The Z-line was regular. There was mild erythema in the gastric antrum and body. Biopsies were obtained with a cold biopsy forceps per [place] protocol and evaluation of H. pylori. The duodenal bulb was mildly erythematous, second portion of the duodenum was normal. Biopsies were obtained with a cold biopsy forceps throughout the duodenum for histology. . Images Procedure images: [id number]_[id number].jpg EGD_0007.jpg EGD_0008.jpg EGD_0005.jpg EGD_0006.jpg EGD_0003.jpg EGD_0002.jpg EGD_0001.jpg EGD_0004.jpg . Post-Procedure Complications encountered during the procedure were none. Estimated blood loss during the procedure Minimal. Specimens were sent to pathology. Impression and Plan Notes: Impression: -Normal esophagus - Gastric erythema. Biopsied. - Duodenal erythema. Biopsied. Recommendations: -Await pathology results - Outpatient GI follow-up - Proceed with same-day colonoscopy -The patient has a contact number available for emergencies. The signs and symptoms of potential delayed complications were discussed with the patient. Return to normal activities tomorrow. Written discharge instructions were provided to the patient.. Electronically signed by Jaron Falcon MD 04/29/22 09:39 [facility] Comment on above: Order Comment: Henrietta portillo Attachment [id number] Can be viewed in source system Missing Attachment [id number] Can be viewed in source system Missing Attachment [id number] Can be viewed in source system Missing Attachment [id number] Can be viewed in source system Missing Attachment [id number] Can be viewed in source system Missing Attachment [id number] Can be viewed in source system Missing Attachment [id number] Can be viewed in source system Missing Attachment [id number] Can be viewed in source system Missing Attachment [id number] Can be viewed in source system 04-29-2022 Note Clinical Information Procedure: EGD, colonoscopy Pre-operative diagnosis: Low Abdominal Pain/altered Bowel Habits/Nausea/Reflux SP Specimen A Gastric biopsies B Duodenum biopsies C Random colon biopsies Gross Description Part A: Received in formalin labeled 'gastric biopsies' are two pieces of light stark tissue measuring 0.3 and 0.4 cm in greatest dimension. The specimen is entirely submitted in cassette A1. Part B: Received in formalin labeled 'duodenum biopsies' are multiple pieces of light stark tissue measuring 0.1-0.4 cm in greatest dimension. The specimen is entirely submitted in cassette B1. Part C: Received in formalin labeled 'random colon biopsies' are multiple pieces of light stark tissue measuring 0.2-0.4 cm in greatest dimension. The specimen is entirely submitted in cassette C1. Microscopic Description Part A: Sections of the stomach biopsies show moderate chronic inflammation with lymphoid aggregates. Immunohistochemical stain for H. pylori shows no organisms.. All positive and negative controls show appropriate reactivity. Part B: Sections examined at multiple levels show fragments of duodenal mucosa showing no significant villous shortening. The lamina propria shows a normal amount of chronic inflammatory cells. There is no evidence of acute inflammation or granulomatous disease. There is no evidence of dysplasia or malignancy. There is no evidence of celiac disease. Part C: Sections examined at multiple levels show fragments of colonic mucosa showing distended lamina propria with slightly increased lymphocytes, plasma cells and scattered eosinophils. There is no evidence of acute inflammation or granulomatous disease. There is no evidence of thickening of the subepithelial basement membrane collagen layer. There is no evidence of increased intraepithelial lymphocytes. There is no evidence of dysplasia or malignancy. Diagnosis Part A: Stomach, biopsies: Moderate chronic gastritis. Part B: Duodenum, biopsies: Benign small bowel. Negative for celiac disease. Part C: Colon, biopsies: Benign colonic mucosa. Negative for acute colitis. [id number] Moira Villatoro MD (Electronically signed by) Verified: 05/01/22 15:14 [facility] Comment on above: Performed By: #### S LA #### [facility] (DEFAULT) [address] [place] [address] 05-06-2021 Note Encounter Department : [facility] Progress Notes by Nico Jason MD at 05/06/2021 8:15 AM Author: BLAKE Parkservice: -Author Type: Physician Filed: 05/06/2021 8:42 AMEncounter Date: 05/06/2021tatus: Signed Patch Press Operator: Nico Jason MD (Physician) The note has been blocked for the following reason: Preventing Harm - risk of harm to patient or others DISCLOSURE OF THIS INFORMATION TO THE PATIENT WITHOUT THE PSYCHIATRIST'S PERMISSION MAY CAUSE HARM TO THE PATIENT. SUBJECTIVE [NOTE: This was a telemedicine appointment due to COVID-19 pandemic] Today's Telehealth visit is provided via [email or web address] from my practice by Nico Jason MD. The patient has consented to be treated electronically by way of this live chat video technology. Pt?contacted?today for follow-up re: MDD, Generalized Anxiety d/o, Panic d/o, R/O PTSD. Pt notes that she has been feeling anxious at times since last visit. Pt also notes experiencing muscle tension at times as well as feeling tense/on edge. Pt reports experiencing irritability at times. Denies experiencing any other problems with her mood since last visit (ie: no depressed mood, no euphoria, etc). Pt notes experiencing apathy at times. Otherwise, pt denies experiencing any other neurovegetative sx's since last visit. Denies SI/HI. Pt denies experiencing any panic sx's since last visit. Pt denies experiencing any manic sx's since last visit. Pt reports being adherent to Rx'es since last visit. Pt notes that decreasing Effexor XR at last visit yielded resolution of increased BP/diaphoresis as SE. Denies experiencing any other SE from Rx'es now. No new Rx'es noted. Pt notes having about 2-3 drinks 2-3 times since last visit. Denies any illicit substance use since last visit. Upon review, appears that above-noted sx's may be related to/aggravated by several concurrent/ongoing stressors. As such, and given above-noted hx, discussed with pt the possibility of making Rx changes now in order to possibly further improve sx control. However after discussion, pt indicated preferring to continue with Rx'es unchanged for now and revisit this possibility at next visit if need be. No other concerns noted. OBJECTIVE Mental Status Examination: General:?appropriate hygiene and eye contact Capacity for ADLs:?good Motor: psychomotor agitation observed Speech:?regular rate, rhythm, and tone, non-pressured, spontaneous Language:?more expletives used today Mood:?mildly anxious, mildly irritable Affect: full range, appropriate to stated mood Thought Process:?linear, logical, goal-directed Thought Content:?denies delusions; denies SI,?denies HI. Perceptions:?denies auditory, visual, or tactile hallucinations Concentration:?grossly intact Orientation:?oriented to person, place, time and situation Memory:?grossly intact Insight:?intact Judgment:?intact Assessment ASSESSMENT ICD-10-CM 1.Recurrent major depression in partial remission (HCC) F33.41venlafaxine (EFFEXOR-XR) 75 mg 24 hr capsule 2.Generalized anxiety disorder F41.1venlafaxine (EFFEXOR-XR) 75 mg 24 hr capsule 3.Panic disorder without agoraphobia F41.0venlafaxine (EFFEXOR-XR) 75 mg 24 hr capsule 4. Rule-out PTSD (F43.10) PLAN - Medications: Outpatient Encounter Medications as of 05/06/2021 MedicationSigDispenseRefill -cholestyramine (QUESTRAN) 4 gram packetTake 1 packet (4 g total) by mouth 3 times daily as needed.60 each5 -docusate (COLACE) 100 mg capsuleTake 100 mg by mouth 2 times daily. -esomeprazole (NEXIUM) 20 mg delayed-release capsuleTake 2 capsules by mouth every morning (before breakfast).30 capsule0 -hydrOXYzine (ATARAX) 50 mg tabletTake 0.5-2 tablets at bedtime as needed for [id number] tablet0 -hyoscyamine (ANASPAZ,LEVSIN) 0.125 mg tabletTake 1 tablet by mouth every 4 hours as needed for Cramping. Indications: Irritable Bowel Vsxacgah13 tablet0 -lactobacillus combination no.9 (ADULT 50+ PROBIOTIC) 4 billion cell CapTake 1 capsule by mouth 2 times daily.0 -levothyroxine (SYNTHROID, LEVOXYL) 175 mcg tabletTake 1 tablet (175 mcg total) by mouth every morning (before breakfast).90 tablet3 -metFORMIN (GLUCOPHAGE) 850 mg tabletTake 1 tablet (850 mg total) by mouth 2 times daily (with meals).60 cixiwh70 -Norethindrn A-E Estradiol-Iron (JUNEL FE 24) 1 mg-20 mcg (24)/75 mg (4) TabTake 1 tablet by mouth daily.28 -norgestimate-ethinyl estradioL (SPRINTEC, 28,) 0.25-35 mg-mcg tabletTake 1 tablet by mouth daily.28 rmfyhk08 -polycarbophil (FIBERCON) 625 mg tabletTake 625 mg by mouth daily. 3 tablets daily - VIT #108-IRON-FA POTake by mouth daily. -propranolol (INDERAL) 20 mg tabletTake 1 tablet four times daily as needed for anxiety/iriuppert837 tablet0 -venlafaxine (EFFEXOR-XR) 75 mg 24 hr capsuleTake 3 capsules in AM90 capsule1 -[DISCONTINUED] venlafaxine (EFFEXOR-XR) 75 mg 24 hr capsuleTake 3 capsules (more content not included)... [facility] 04-03-2021 Note Encounter Department : [facility] Progress Notes by Nico Jason MD at 04/03/2021 8:15 AM Author: BLAKE Parkservice: -Author Type: Physician Filed: 04/03/2021 8:41 AMEncounter Date: 04/03/2021tatus: Signed Patch Press Operator: Nico Jason MD (Physician) The note has been blocked for the following reason: Preventing Harm - risk of harm to patient or others DISCLOSURE OF THIS INFORMATION TO THE PATIENT WITHOUT THE PSYCHIATRIST'S PERMISSION MAY CAUSE HARM TO THE PATIENT. SUBJECTIVE [NOTE: This was a telemedicine appointment due to COVID-19 pandemic] Today's Telehealth visit is provided via [email or web address] from my practice by Nico Jason MD. The patient has consented to be treated electronically by way of this live chat video technology. Pt?contacted?today for follow-up re: MDD, Generalized Anxiety d/o, Panic d/o, R/O PTSD. Pt notes that she has been feeling less anxious and feeling less tense/on edge lately. Pt reports experiencing less irritability lately too. Pt denies experiencing any other problems with her mood since last visit (ie: no euphoria, no depressed mood, etc). Pt notes experiencing apathy at times. Pt denies experiencing any other neurovegetative sx's since last visit. Denies SI/HI. Pt denies experiencing any panic sx's since last visit. Pt notes still experiencing muscle tension. Pt reports being adherent to Rx'es since last visit. Pt reports having increased BP lately; pt notes that typical BP for her is in 110s/80s; BP lately has been in high 130s/90s. Pt also notes experiencing diaphoresis which is also likely related to increased Effexor XR as SE. No other SE from Rx'es noted. Pt now taking spironolactone; no other new Rx'es noted. Pt notes having 4-5 drinks since last visit. Denies any illicit substance use since last visit. Given above-noted hx, discussed with pt possibility of decreasing Effexor XR to see if doing so attenuates above-noted SE. After discussion pt indicated wanting to give this a try. As such, and given above-noted hx, discussed with pt possibility of making additional Rx changes now to possibly compensate for decreasing Effexor XR. However, after discussion pt indicated wanting to continue with remainder of Rx regimen unchanged for now. No other concerns noted. OBJECTIVE Mental Status Examination: General:?appropriate hygiene and eye contact Capacity for ADLs:?good Motor:?less psychomotor agitation observed today Speech:?regular rate, rhythm, and tone, non-pressured, spontaneous Language:?normal Mood:?less anxious, less irritable Affect: less restricted today, appropriate to stated mood Thought Process:?linear, logical, goal-directed Thought Content:?denies delusions; denies SI,?denies HI. Perceptions:?denies auditory, visual, or tactile hallucinations Concentration:?grossly intact Orientation:?oriented to person, place, time and situation Memory:?grossly intact Insight:?intact Judgment:?intact Assessment ASSESSMENT ICD-10-CM 1.Recurrent major depression in partial remission (HCC) F33.41venlafaxine (EFFEXOR-XR) 75 mg 24 hr capsule 2.Generalized anxiety disorder F41.1venlafaxine (EFFEXOR-XR) 75 mg 24 hr capsule 3.Panic disorder without agoraphobia F41.0venlafaxine (EFFEXOR-XR) 75 mg 24 hr capsule 4. Rule-out PTSD (F43.10) PLAN - Medications: Outpatient Encounter Medications as of 04/03/2021 MedicationSigDispenseRefill -cholestyramine (QUESTRAN) 4 gram packetTake 1 packet (4 g total) by mouth 3 times daily as needed.60 each5 -docusate (COLACE) 100 mg capsuleTake 100 mg by mouth 2 times daily. -esomeprazole (NEXIUM) 20 mg delayed-release capsuleTake 2 capsules by mouth every morning (before breakfast).30 capsule0 -hydrOXYzine (ATARAX) 50 mg tabletTake 0.5-2 tablets at bedtime as needed for ajkqnrga757 tablet0 -hyoscyamine (ANASPAZ,LEVSIN) 0.125 mg tabletTake 1 tablet by mouth every 4 hours as needed for Cramping. Indications: Irritable Bowel Samrwroq12 tablet0 -lactobacillus combination no.9 (ADULT 50+ PROBIOTIC) 4 billion cell CapTake 1 capsule by mouth 2 times daily.0 -levothyroxine (SYNTHROID, LEVOXYL) 175 mcg tabletTake 1 tablet (175 mcg total) by mouth every morning (before breakfast).90 tablet3 -metFORMIN (GLUCOPHAGE) 850 mg tabletTake 1 tablet (850 mg total) by mouth 2 times daily (with meals).60 bwhpae03 -Norethindrn A-E Estradiol-Iron (JUNEL FE 24) 1 mg-20 mcg (24)/75 mg (4) TabTake 1 tablet by mouth daily.28 uttvnc16 -norgestimate-ethinyl estradioL (SPRINTEC, 28,) 0.25-35 mg-mcg tabletTake 1 tablet by mouth daily.28 waugoi26 -polycarbophil (FIBERCON) 625 mg tabletTake 625 mg by mouth daily. 3 tablets daily - VIT #108-IRON-FA POTake by mouth daily. -propranolol (INDERAL) 20 mg tabletTake 1 tablet four times daily as needed for anxiety/kqcwgsuai853 tablet0 -[DISCONTINUED] venlafaxine (EFFEXOR-XR) 150 mg 24 hr capsuleTake 2 capsules in (more content not included)... [facility] 03-06-2021 Note Encounter Department : [facility] Progress Notes by Nico Jason MD at 03/06/2021 8:15 AM Author: BLAKE Parkservice: -Author Type: Physician Filed: 03/06/2021 8:37 AMEncounter Date: 03/06/2021tatus: Signed Patch Press Operator: Nico Jason MD (Physician) The note has been blocked for the following reason: Preventing Harm - risk of harm to patient or others DISCLOSURE OF THIS INFORMATION TO THE PATIENT WITHOUT THE PSYCHIATRIST'S PERMISSION MAY CAUSE HARM TO THE PATIENT. SUBJECTIVE [NOTE: This was a telemedicine appointment due to COVID-19 pandemic] Today's Telehealth visit is provided via [email or web address] from my practice by Nico Jason MD. The patient has consented to be treated electronically by way of this live chat video technology. Pt?contacted?today for follow-up re: MDD, Generalized Anxiety d/o, Panic d/o, R/O PTSD. Pt notes that she has been feeling more anxious, agitated, and irritable lately. Pt denies experiencing any other problems with her mood since last visit (ie: no euphoria, no depressed mood, etc). Pt notes experiencing insomnia along with resultant apathy. Pt also notes experiencing feelings of worthlessness at times. Pt denies experiencing any other neurovegetative sx's since last visit. Denies SI/HI. Pt reports feeling tense/on edge. Pt also notes experiencing muscle tension. Denies experiencing any panic sx's since last visit. Pt denies experiencing any manic sx's since last visit. Pt reports being adherent to Rx'es since last visit. Pt notes experiencing possible flushing as possible SE from Effexor XR, but this is not entirely clear. No new Rx'es noted. Pt denies using any EtOH or illicit substances since last visit. Pt notes feeling uncertain if increasing Effexor XR--done at last visit--has been all that helpful for her, and pt wondering if increasing irritability/agitation/anxiety may represent SE from this Rx. However, upon review, appears that irritability/agitation/anxiety may also be a fxn of several concurrent/new stressors. With this in mind, and given above-noted hx, reviewed with pt possible courses of action at present, including making additional Rx changes at present to possibly improve sx control, decreasing Effexor XR now to see if doing so attenuates above-noted problems, continuing with current Rx regimen unchanged for now, etc. After discussion pt indicated wanting to continue with current Rx regimen unchanged for now and revisit these other possibilities at next visit if need be. No other concerns noted. OBJECTIVE Mental Status Examination: General:?appropriate hygiene and eye contact Capacity for ADLs:?good Motor:?psychomotor agitation observed Speech:?regular rate, rhythm, and tone, non-pressured, spontaneous Language:?normal Mood:?anxious, irritable Affect:?somewhat less restricted today, appropriate to stated mood Thought Process:?linear, logical, goal-directed Thought Content:?denies delusions; denies SI,?denies HI. Perceptions:?denies auditory, visual, or tactile hallucinations Concentration:?grossly intact Orientation:?oriented to person, place, time and situation Memory:?grossly intact Insight:?intact Judgment:?intact Assessment ASSESSMENT ICD-10-CM 1.Recurrent major depression in partial remission (HCC) F33.41venlafaxine (EFFEXOR-XR) 150 mg 24 hr capsule 2.Generalized anxiety disorder F41.1venlafaxine (EFFEXOR-XR) 150 mg 24 hr capsule 3.Panic disorder without agoraphobia F41.0venlafaxine (EFFEXOR-XR) 150 mg 24 hr capsule 4. Rule-out PTSD (F43.10) PLAN - Medications: Outpatient Encounter Medications as of 03/06/2021 MedicationSigDispenseRefill -cholestyramine (QUESTRAN) 4 gram packetTake 1 packet (4 g total) by mouth 3 times daily as needed.60 each5 -docusate (COLACE) 100 mg capsuleTake 100 mg by mouth 2 times daily. -esomeprazole (NEXIUM) 20 mg delayed-release capsuleTake 2 capsules by mouth every morning (before breakfast).30 capsule0 -hydrOXYzine (ATARAX) 50 mg tabletTake 0.5-2 tablets at bedtime as needed for xmhchivv045 tablet0 -hyoscyamine (ANASPAZ,LEVSIN) 0.125 mg tabletTake 1 tablet by mouth every 4 hours as needed for Cramping. Indications: Irritable Bowel Kbqoenjv10 tablet0 -lactobacillus combination no.9 (ADULT 50+ PROBIOTIC) 4 billion cell CapTake 1 capsule by mouth 2 times daily.0 -levothyroxine (SYNTHROID, LEVOXYL) 175 mcg tabletTake 1 tablet (175 mcg total) by mouth every morning (before breakfast).90 tablet3 -metFORMIN (GLUCOPHAGE) 850 mg tabletTake 1 tablet (850 mg total) by mouth 2 times daily (with meals).60 bpbkol16 -Norethindrn A-E Estradiol-Iron (JUNEL FE 24) 1 mg-20 mcg (24)/75 mg (4) TabTake 1 tablet by mouth daily.28 -norgestimate-ethinyl estradioL (SPRINTEC, 28,) 0.25-35 mg-mcg tabletTake 1 tablet by mouth daily.28 -polycarbophil (FIBERCON) 625 mg tabletTake 625 mg by mouth daily. 3 tablets da (more content not included)... [facility] 01-23-2021 Note Encounter Department : [facility] Progress Notes by Nico Jason MD at 01/23/2021 8:15 AM Author: BLAKE Parkservice: -Author Type: Physician Filed: 01/23/2021 8:45 AMEncounter Date: 01/23/2021tatus: Signed Patch Press Operator: Nico Jason MD (Physician) The note has been blocked for the following reason: Preventing Harm - risk of harm to patient or others DISCLOSURE OF THIS INFORMATION TO THE PATIENT WITHOUT THE PSYCHIATRIST'S PERMISSION MAY CAUSE HARM TO THE PATIENT. SUBJECTIVE [NOTE: This was a telemedicine appointment due to COVID-19 pandemic] Today's Telehealth visit is provided via [email or web address] from my practice by Nico Jason MD. The patient has consented to be treated electronically by way of this live chat video technology. Pt?contacted?today for follow-up re: MDD, Generalized Anxiety d/o, Panic d/o, R/O PTSD. Pt notes that she has been feeling more anxious lately. Pt also notes experiencing more irritability lately. Pt denies experiencing any other problems with her mood since last visit (ie no depressed mood, no euphoria, etc). Pt notes experiencing insomnia at times and pt notes increasing problems with apathy, fatigue. Pt also reports experiencing problems with concentration at times as well as feelings of worthlessness. Pt denies experiencing any other neurovegetative sx's since last visit. Denies SI/HI. Pt denies experiencing any panic sx's since last visit. Pt reports being adherent to Rx'e since last visit. Denies experiencing any SE from Rx'es. No new Rx'es noted. Pt notes having about 5-6 drinks every other week since last visit. Denies any illicit substance use since last visit. Upon review, appears that above-noted sx's may be related to several concurrent stressors. As such, and given above-noted hx, discussed with pt possibility of making Rx changes now in order to possibly improve sx control. Pt indicated being interested in this. With this in mind, and given above-noted hx, discussed with pt possibility of increasing Effexor XR now. After discussion pt indicated wanting to give this tx option a try. No other concerns noted. OBJECTIVE Mental Status Examination: General:?appropriate hygiene and eye contact Capacity for ADLs:?good Motor:?psychomotor agitation observed Speech:?regular rate, rhythm, and tone, non-pressured, spontaneous Language:?normal Mood:?anxious, mildly irritable Affect:?more restricted today, appropriate to stated mood Thought Process:?linear, logical, goal-directed Thought Content:?denies delusions; denies SI,?denies HI. Perceptions:?denies auditory, visual, or tactile hallucinations Concentration:?grossly intact Orientation:?oriented to person, place, time and situation Memory:?grossly intact Insight:?intact Judgment:?intact Assessment ASSESSMENT ICD-10-CM 1.Recurrent major depression in partial remission (HCC) F33.41venlafaxine (EFFEXOR-XR) 150 mg 24 hr capsule 2.Generalized anxiety disorder F41.1venlafaxine (EFFEXOR-XR) 150 mg 24 hr capsule 3.Panic disorder without agoraphobia F41.0venlafaxine (EFFEXOR-XR) 150 mg 24 hr capsule 4. Rule-out PTSD (F43.10) PLAN - Medications: Outpatient Encounter Medications as of 01/23/2021 MedicationSigDispenseRefill -cholestyramine (QUESTRAN) 4 gram packetTake 1 packet (4 g total) by mouth 3 times daily as needed.60 each5 -docusate (COLACE) 100 mg capsuleTake 100 mg by mouth 2 times daily. -esomeprazole (NEXIUM) 20 mg delayed-release capsuleTake 2 capsules by mouth every morning (before breakfast).30 capsule0 -hydrOXYzine (ATARAX) 50 mg tabletTake 0.5-2 tablets at bedtime as needed for tablet0 -hyoscyamine (ANASPAZ,LEVSIN) 0.125 mg tabletTake 1 tablet by mouth every 4 hours as needed for Cramping. Indications: Irritable Bowel Buacrfxv07 tablet0 -lactobacillus combination no.9 (ADULT 50+ PROBIOTIC) 4 billion cell CapTake 1 capsule by mouth 2 times daily.0 -levothyroxine (SYNTHROID, LEVOXYL) 175 mcg tabletTake 1 tablet (175 mcg total) by mouth every morning (before breakfast).90 tablet3 -metFORMIN (GLUCOPHAGE) 850 mg tabletTake 1 tablet (850 mg total) by mouth 2 times daily (with meals).60 ojydqd20 -Norethindrn A-E Estradiol-Iron (JUNEL FE 24) 1 mg-20 mcg (24)/75 mg (4) TabTake 1 tablet by mouth daily.28 kgupef51 -norgestimate-ethinyl estradioL (SPRINTEC, 28,) 0.25-35 mg-mcg tabletTake 1 tablet by mouth daily.28 shkeju70 -polycarbophil (FIBERCON) 625 mg tabletTake 625 mg by mouth daily. 3 tablets daily - VIT #108-IRON-FA POTake by mouth daily. -propranolol (INDERAL) 20 mg tabletTake 1 tablet four times daily as needed for anxiety/ tablet0 -venlafaxine (EFFEXOR-XR) 150 mg 24 hr capsuleTake 2 capsules in AM60 capsule0 -[DISCONTINUED] venlafaxine (EFFEXOR-XR) 150 mg 24 hr capsuleTAKE 1 CAPSULE BY MOUTH IN THE [id number] capsule0 -[DISCONTINUED] venlafaxine (EFFEXOR-XR) 75 mg 24 hr cap (more content not included)... [facility] 10-31-2020 Note Encounter Department : [facility] Progress Notes by Nico Jason MD at 10/31/2020 8:15 AM Author: BLAKE Parkservice: -Author Type: Physician Filed: 10/31/2020 8:38 AMEncounter Date: 10/31/2020tatus: Signed Patch Press Operator: Nico Jason MD (Physician) DISCLOSURE OF THIS INFORMATION TO THE PATIENT WITHOUT THE PSYCHIATRIST'S PERMISSION MAY CAUSE HARM TO THE PATIENT. SUBJECTIVE [NOTE: This was a telemedicine appointment due to COVID-19 pandemic] Today's Telehealth visit is provided via [email or web address] from my practice by Nico Jason MD. The patient has consented to be treated electronically by way of this live chat video technology. Pt?contacted?today for follow-up re: MDD, Generalized Anxiety d/o, Panic d/o, R/O PTSD. Overall, pt notes that she has been doing relatively OK since last visit. In particular, pt denies experiencing any problems with her mood since last visit (ie: no euphoria, no depressed mood, no irritability, etc). Pt notes experiencing occasional apathy at times. Pt also reports experiencing feelings of worthlessness at times. Pt denies experiencing any other neurovegetative sx's since last visit. Denies SI/HI. Pt reports experiencing occasional instances of anxiety but pt notes that these are manageable/not that bothersome for her. Denies feeling tense/on edge and pt also denies experiencing any muscle tension since last visit. Denies experiencing any panic sx's since last visit. Pt reports being adherent to Rx'es since last visit. Denies experiencing any SE from Rx'es. No new Rx'es noted. Pt reports having about 1-2 drinks weekly since last visit. Denies any illicit substance use since last visit. Pt notes feeling satisfied with current results from Rx regimen, and as such, pt indicates wanting to continue with current Rx regimen unchanged for now. As pt has been doing well on a consistent basis for a significant period of time, discussed with pt possibility of having Rx'es managed by wildlife and game protector. Pt indicated being interested in this, and thus pt indicates she will speak to wildlife and game protector about this when she sees her later on this year.? If pt unable to secure such an arrangement, reviewed with pt that she could continue to follow-up here/with me instead. Pt indicated understanding of and agreement with this plan. No other concerns noted. OBJECTIVE Mental Status Examination: General:?appropriate hygiene and eye contact Capacity for ADLs:?good Motor:?mild?psychomotor agitation observed Speech:?regular rate, rhythm, and tone, non-pressured, spontaneous Language:?normal Mood:?mildly?anxious Affect:?full range, appropriate to stated mood Thought Process:?linear, logical, goal-directed Thought Content:?denies delusions; denies SI,?denies HI. Perceptions:?denies auditory, visual, or tactile hallucinations Concentration:?grossly intact Orientation:?oriented to person, place, time and situation Memory:?grossly intact Insight:?intact Judgment:?intact Assessment ASSESSMENT ICD-10-CM 1.Recurrent major depression in partial remission (HCC) F33.41venlafaxine (EFFEXOR-XR) 75 mg 24 hr capsule venlafaxine (EFFEXOR-XR) 150 mg 24 hr capsule 2.Generalized anxiety disorder F41.1venlafaxine (EFFEXOR-XR) 75 mg 24 hr capsule venlafaxine (EFFEXOR-XR) 150 mg 24 hr capsule 3.Panic disorder without agoraphobia F41.0venlafaxine (EFFEXOR-XR) 75 mg 24 hr capsule venlafaxine (EFFEXOR-XR) 150 mg 24 hr capsule 4. Rule-out PTSD (F43.10) PLAN - Medications: Outpatient Encounter Medications as of 10/31/2020 MedicationSigDispenseRefill -cholestyramine (QUESTRAN) 4 gram packetTake 1 packet (4 g total) by mouth 3 times daily as needed.60 each5 -docusate (COLACE) 100 mg capsuleTake 100 mg by mouth 2 times daily. -esomeprazole (NEXIUM) 20 mg delayed-release capsuleTake 2 capsules by mouth every morning (before breakfast).30 capsule0 -hydrOXYzine (ATARAX) 50 mg tabletTake 0.5-2 tablets at bedtime as needed for uejmmyue555 tablet0 -hyoscyamine (ANASPAZ,LEVSIN) 0.125 mg tabletTake 1 tablet by mouth every 4 hours as needed for Cramping. Indications: Irritable Bowel Hzuozwby46 tablet0 -lactobacillus combination no.9 (ADULT 50+ PROBIOTIC) 4 billion cell CapTake 1 capsule by mouth 2 times daily.0 -levothyroxine (SYNTHROID, LEVOXYL) 175 mcg tabletTake 1 tablet (175 mcg total) by mouth every morning (before breakfast).90 tablet3 -metFORMIN (GLUCOPHAGE) 850 mg tabletTake 1 tablet (850 mg total) by mouth 2 times daily (with meals).60 tzxrea75 -Norethindrn A-E Estradiol-Iron (JUNEL FE 24) 1 mg-20 mcg (24)/75 mg (4) TabTake 1 tablet by mouth daily.28 omrggm83 -norgestimate-ethinyl estradioL (SPRINTEC, 28,) 0.25-35 mg-mcg tabletTake 1 tablet by mouth daily.28 dpixog97 -polycarbophil (FIBERCON) 625 mg tabletTake 625 mg by mouth daily. 3 tablets daily - VIT #108-IRON-FA POTake by mouth daily. -propranolol (INDERA (more content not included)... [facility] 08-02-2020 Note Encounter Department : [facility] Progress Notes by Nico Jason MD at 08/02/2020 8:15 AM Author: BLAKE Parkservice: -Author Type: Physician Filed: 08/02/2020 8:32 AMEncounter Date: 08/02/2020tatus: Signed Patch Press Operator: Nico Jason MD (Physician) DISCLOSURE OF THIS INFORMATION TO THE PATIENT WITHOUT THE PSYCHIATRIST'S PERMISSION MAY CAUSE HARM TO THE PATIENT. SUBJECTIVE [NOTE: This was a telemedicine appointment due to COVID-19 pandemic] Today's Telehealth visit is provided via [email or web address]? from my practice by Nico Jason MD. The patient has consented to be treated electronically by way of this live chat video technology. Pt?contacted?today for follow-up re: MDD, Generalized Anxiety d/o, Panic d/o, R/O PTSD. Pt notes that she has been experiencing insomnia lately as well as resultant apathy. Pt notes that this may be related to having started a new OCP (Lo-Estrin), but this is not entirely clear. Pt also notes experiencing anxiety at times as well as experiencing muscle tension. Pt denies feeling tense/on edge lately. Pt denies experiencing any other problems with her mood since last visit (ie no euphoria, no depressed mood, no irritability, etc). Pt denies experiencing any other neurovegetative sx's since last visit. Denies SI/HI. Pt denies experiencing any manic sx's since last visit. Pt also denies experiencing any panic sx's since last visit. Pt reports being adherent to Rx'es since last visit. Denies experiencing any SE from Rx'es. No other new Rx'es noted. Pt reports having about 2 drinks every month since last visit. Denies any illicit substance use since last visit. No concurrent stressors noted. Given above-noted hx, discussed with pt possibility of making Rx changes now in order to possibly improve sx control. Pt indicated being interested in this. As such, and given above-noted hx, discussed with pt possibility of starting prn hydroxyzine to help with insomnia. After discussion pt indicated wanting to give this tx option a try. Otherwise pt indicated wanting to continue with remainder of Rx regimen unchanged for now. Offered pt follow-up with me in 1-2 months, but pt indicated preferring to return for follow-up in 3 months instead. No other concerns noted. OBJECTIVE Mental Status Examination: General:?appropriate hygiene and eye contact Capacity for ADLs:?good Motor:?less?psychomotor agitation observed today Speech:?regular rate, rhythm, and tone, non-pressured, spontaneous Language:?normal Mood:?mildly?anxious Affect:?full range, appropriate to stated mood Thought Process:?linear, logical, goal-directed Thought Content:?denies delusions; denies SI,?denies HI. Perceptions:?denies auditory, visual, or tactile hallucinations Concentration:?grossly intact Orientation:?oriented to person, place, time and situation Memory:?grossly intact Insight:?intact Judgment:?intact Assessment ASSESSMENT ICD-10-CM 1.Recurrent major depression in partial remission (HCC) F33.41venlafaxine (EFFEXOR-XR) 75 mg 24 hr capsule venlafaxine (EFFEXOR-XR) 150 mg 24 hr capsule 2.Generalized anxiety disorder F41.1venlafaxine (EFFEXOR-XR) 75 mg 24 hr capsule venlafaxine (EFFEXOR-XR) 150 mg 24 hr capsule hydrOXYzine (ATARAX) 50 mg tablet 3.Panic disorder without agoraphobia F41.0venlafaxine (EFFEXOR-XR) 75 mg 24 hr capsule venlafaxine (EFFEXOR-XR) 150 mg 24 hr capsule hydrOXYzine (ATARAX) 50 mg tablet 4. Rule-out PTSD (F43.10) PLAN - Medications: Outpatient Encounter Medications as of 08/02/2020 MedicationSigDispenseRefill -cholestyramine (QUESTRAN) 4 gram packetTake 1 packet (4 g total) by mouth 3 times daily as needed.60 each5 -docusate (COLACE) 100 mg capsuleTake 100 mg by mouth 2 times daily. -esomeprazole (NEXIUM) 20 mg delayed-release capsuleTake 2 capsules by mouth every morning (before breakfast).30 capsule0 -hydrOXYzine (ATARAX) 50 mg tabletTake 0.5-2 tablets at bedtime as needed for meezrxln462 tablet0 -hyoscyamine (ANASPAZ,LEVSIN) 0.125 mg tabletTake 1 tablet by mouth every 4 hours as needed for Cramping. Indications: Irritable Bowel Miibhylg64 tablet0 -lactobacillus combination no.9 (ADULT 50+ PROBIOTIC) 4 billion cell CapTake 1 capsule by mouth 2 times daily.0 -levothyroxine (SYNTHROID, LEVOXYL) 175 mcg tabletTake 1 tablet (175 mcg total) by mouth every morning (before breakfast).90 tablet3 -metFORMIN (GLUCOPHAGE) 850 mg tabletTake 1 tablet (850 mg total) by mouth 2 times daily (with meals).60 iryqab70 -Norethindrn A-E Estradiol-Iron (JUNEL FE 24) 1 mg-20 mcg (24)/75 mg (4) TabTake 1 tablet by mouth daily.28 jbifcs90 -norgestimate-ethinyl estradioL (SPRINTEC, 28,) 0.25-35 mg-mcg tabletTake 1 tablet by mouth daily.28 peulli69 -polycarbophil (FIBERCON) 625 mg tabletTake 625 mg by mouth daily. 3 tablets daily - VIT #108-IRON-FA POTake by mouth daily. -propranolol (INDERAL) 20 mg (more content not included)... [facility] Evaluation + Plan note No data available for this section [facility] Hospital Discharge instructions No data available for this section [facility] Progress note No data available for this section [facility] Summary Purpose Family History No Family History Records FoundNo Family History Records FoundNo Family History Records FoundNo Family History Records FoundNo Family History Records Found No data available for this section No Family History Records FoundNo Family History Records Found Advance Directives No Advanced Directives Records FoundNo Advanced Directives Records FoundNo Advanced Directives Records FoundNo Advanced Directives Records FoundNo Advanced Directives Records FoundNo Advanced Directives Records FoundNo Advanced Directives Records Found Additional Source Comments INFORMATION SOURCE (unrecogn ized section and content) DATE CREATED AUTHOR 07/28/2019 [facility] DATE CREATED AUTHOR AUTHOR'S ORGANIZ ATION 05/06/2021 [facility] DATE CREATED AUTHOR AUTHOR'S ORGANIZ ATION 06/01/2021 [facility] DATE CREATED AUTHOR AUTHOR'S ORGANIZ ATION 03/21/2023 [facility] DATE CREATED AUTHOR AUTHOR'S ORGANIZ ATION [facility]/23/2023 [facility] DATE CREATED AUTHOR AUTHOR'S ORGANIZ ATION 07/25/2023 [facility] DATE CREATED AUTHOR AUTHOR'S ORGANIZ ATION 08/06/2023 [facility] Patient Care team informatio n (unrecognized section and content) Personnel Name: TIFFANIE SWEENEY MD Address: Address: [address] [place] [address] FOR RECORDS PERTAINING TO PATIENTS WHO ARE OR HAVE BEEN ENROLLED IN A CHEMICAL DEPENDENCY/SUBSTANCEABUSE PROGRAM, SOME INFORMATION MAY BE OMITTED. This clinical summary was aggregated from multiple sources. Caution should be exercised in using it in the provision of clinical care. This summary normalizes information from multiple sources, and as a consequence, information in this document may materially change the coding, format and clinical context of patient data. In addition, data may be omitted in some cases. CLINICAL DECISIONS SHOULD BE BASED ON THE PRIMARY CLINICAL RECORDS. [facility]. provides no warranty or guarantee of the accuracy or completeness of information in this document.
[2023-08-18 08:39] LABS: Glucometer 92 mg/dL (74-106)
[2023-08-18] MEDS: LACTATED RINGER'S SOLUTION 1,000 ML 50 ML IV (08:45)
[2023-08-18 09:13] LABS: HCG Qualitative NEGATIVE (NEGATIVE)
[2023-08-18 09:43] LABS: Anion Gap 10.8; BUN Creatinine Ratio 10.8; Calcium 9.9 mg/dL (8.5-10.1); Chloride 103 mmol/L (98-107); Estimated GFR (African America >60 (>=60); Estimated GFR (Non-African Ame >60 (>=60); Glucose 84 mg/dL (74-106); HCG Quantitative <1 mIU/mL; Potassium 3.8 mmol/L (3.5-5.1); Sodium 140 mmol/L (136-145)
[2023-08-18] MEDS: OXYMETAZOLINE HCL 0.05% NASAL SPRAY 30 SPRAY NS (10:38)
[2023-08-18] MEDS: LIDOCAINE HCL 1%-EPINEPHRINE 1:100,000 20 ML MDV INJ (10:42)
[2023-08-18] MEDS: ACETAMINOPHEN 325 MG TABLET 650 MG PO (11:20)
--- NOTE | 2023-08-18 11:23 | PC.NURSE ---
GAVE TYLENOL FOR LIP AND THROAT DISCOMFORT.
--- NOTE | 2023-08-18 11:25 | PC.NURSE ---
1048: PATIENT WAS BROUGHT TO PACU AT THIS TIME. PATIENT HAS A PUFFY LIP MORE THAN LIKELY FROM INTUBATION.
--- NOTE | 2023-08-18 11:51 | PC.NURSE ---
No nasal drainage noted
== END 2023-08-18 11:56 | disposition home or self-care (01) ==
PROVIDERS: Anesthesiology; Visit Provider Otolaryngology
PROC: (CPT 160; principal; 2023-08-18 09:30)
DX: J32.0 Chronic maxillary sinusitis (principal); K90.0 Celiac disease; K57.90 Diverticulosis of intestine, part unspecified, without perforation or abscess without bleeding; K21.9 Gastro-esophageal reflux disease without esophagitis; M79.7 Fibromyalgia; E06.3 Autoimmune thyroiditis; F32.A Depression, unspecified; F43.10 Post-traumatic stress disorder, unspecified; Z79.84 Long term (current) use of oral hypoglycemic drugs; E11.9 Type 2 diabetes mellitus without complications; Z90.49 Acquired absence of other specified parts of digestive tract; Z87.891 Personal history of nicotine dependence
CPT/HCPCS: 31267; 36415; 80048; 82948; 84702; 84703; 88305; 99999; J1094; J2704